=== PATIENT | male | born 1970 | race Caucasian/White ===

== ENCOUNTER 2019-07-23 15:13 | Inpatient (IN) | payer MEDICAID ==
[~2019-07-23] VITALS: Ht 188 cm; Wt 77.8 kg
[2019-07-23] MEDS ORDERED: SODIUM CHLORIDE 0.9% 1,000ML IVBOLUS ONE (15:30)
[2019-07-23] MEDS ORDERED: SODIUM CHLORIDE FLUSH 10ML SYR IVF ONE (15:30)
--- NOTE | 2019-07-23 15:32 | NUR ---
COLLEEN MEJÍA FROM [place] FOR PNA, PANCREATITIS, ETOH AND URINARY RETENTION. PT IS ALTERED STATES YEAR IS "1984". PRESENTS W/ SMIEON CATH W/ NO SECUREMENT DEVICE IN PLACE. PT STATES "PLACED YESTERDAY". PT PRESENTS ON 5L NC. EMS REPORTS WHEN THEY PICKED HIM UP INITIALLY TO BRING HIM TO [facility] HE WAS 51% AT HOME. PT IS TACHYCARDIC. PT HAS TREMORS. GIVEN ATIVAN, 2G ROCEPHIN AND FENTANYL SUPERVISOR TWISTING DEPARTMENT. PT IS CONNECTED TO ALL MONITORING. LAB AND RAD IN ROOM. EKG DONE. CALL LIGHT IN REACH. WILL CONTINUE TO MONITOR.
--- NOTE | 2019-07-23 15:49 | NUR ---
SEIZURE PRECAUTIONS IN PLACE.
[2019-07-23 15:51] LABS: MEAN CORPUSCULAR HEMOGLOBIN 32.2 pg (27.5-34.5); MEAN CORPUSCULAR HGB CONC 32.5 g/dL (33.2-36.2); MEAN PLATELET VOLUME 11.8 fL (7.4-10.4); PLATELET COUNT 124 x10^3/uL (130-400); RED BLOOD COUNT 3.13 x10^6/uL (4.38-5.82); RED CELL DISTRIBUTION WIDTH 15.2 % (9.4-14.8)
--- NOTE | 2019-07-23 15:56 | NUR ---
TELEPHONE CALL FROM [facility] IN US TO REORDER PARACENTESIS IN IR INSTEAD OF US. WILL NOTIFY .
[2019-07-23 16:02] LABS: ALANINE AMINOTRANSFERASE 43 U/L (12-78); ALBUMIN 1.9 g/dL (3.4-5.0); ANION GAP 12 mmol/L (5-15); CALCIUM 7.6 mg/dL (8.5-10.1); CHLORIDE 99 mmol/L (98-107); CREATININE 0.44 mg/dL (0.7-1.3); INTERNATIONAL NORMALIZED RATIO 1.32 (0.93-1.1)
[2019-07-23 16:06] LABS: ALKALINE PHOSPHATASE 340 U/L (45-117); BILIRUBIN,TOTAL 2.9 mg/dL (0.2-1.0); TOTAL PROTEIN 5.7 g/dL (6.4-8.2)
[2019-07-23 16:09] LABS: BASOPHILS # (AUTO) 0.14 x10^3/uL (0-0.1); BASOPHILS % (AUTO) 1 % (0-1); EOSINOPHILS # (AUTO) 0.01 x10^3/uL (0-0.4); EOSINOPHILS % (AUTO) 0 % (1-7); LYMPHOCYTES # (AUTO) 0.66 x10^3/uL (1-3.4); LYMPHOCYTES % (AUTO) 4 % (22-44); MD SCAN; MONOCYTES # (AUTO) 1.16 x10^3/uL (0.2-0.8); MONOCYTES % (AUTO) 6 % (2-9); NEUTROPHILS # (AUTO) 16.89 x10^3/uL (1.8-6.8); NEUTROPHILS % (AUTO) 90 % (42-75)
[2019-07-23 16:14] LABS: ACETONE, SERUM Large (80mg/dL) (Negative)
--- NOTE | 2019-07-23 16:31 | NUR ---
EMEKA BATISTA (GIRLFRIEND) [phone]. PT GAVE VERBAL PERMISSION TO UPDATE HER. STATES SHE WILL BE HERE TOMORROW MORNING.
[2019-07-23] MEDS ORDERED: LORazepam 2 MG/ML, 1ML ONE ×3 (17:03→19:28)
[2019-07-23] MEDS: LORazepam 2 MG/ML, 1ML IVPush PRN ×3 (17:07→19:30)
[2019-07-23] MEDS ORDERED: LIDOCAINE 1%, 10ML ONE (17:15)
--- NOTE | 2019-07-23 17:17 | NUR ---
PT MEDICATED PER EMAR. TACHYCARDIC. ALL OTHER VS WDL. RESTING ON GURNEY, RESTLESS. REPORTS "SEEING SHADOWS" AND WAS HAVING AUDITORY HALLUCINATIONS HOWEVER THEY HAVE STOPPED. WILL CONTINUE TO MONITOR. CALL LIGHT IN REACH. AWAITING PARACENTESIS.
[2019-07-23] MEDS ORDERED: ALEN70TA3 PO (17:23)
[2019-07-23] MEDS ORDERED: IBUP-1222 PO (17:23)
[2019-07-23] MEDS ORDERED: LISI-167 PO (17:23)
[2019-07-23] MEDS ORDERED: GABA-826 PO (17:23)
[2019-07-23] MEDS ORDERED: NORT25CA78 PO (17:28)
[2019-07-23] MEDS ORDERED: TRAZ150T62 PO (17:28)
[2019-07-23] MEDS ORDERED: SERT100T PO (17:28)
[2019-07-23] MEDS ORDERED: AMLO10TA8 PO (17:28)
[2019-07-23] MEDS ORDERED: PROC5TAB2 PO (17:29)
[2019-07-23] MEDS ORDERED: VITAMIN D PO (17:32)
[2019-07-23] MEDS ORDERED: ALBU8.5H8 INH (17:34)
--- NOTE | 2019-07-23 17:35 | NUR ---
PT TO IR VIA [facility]
--- NOTE | 2019-07-23 17:44 | NUR ---
PT BACK FROM IR. REPORTS DRAINING 400CC OFF.
--- NOTE | 2019-07-23 17:53 | NUR ---
URINE COLLECTED AMD SENT TO LAB. SHEET AND SAGAR CHANGED. PT REPOSITIONED IN BED.
--- NOTE | 2019-07-23 18:26 | NUR ---
PT MEDICATED PER DOMINGO. SIMIN GEE IN ROOM FOR US IV.
[2019-07-23 18:53] LABS: MICROSCOPIC INDICATED
--- NOTE | 2019-07-23 18:56 | NUR ---
Assumed care of pt at this time. Pt awake on gurney. Tremors noted. Pt remains on full monitors. Pt responded "hi" when RN intitated conversation but then told RN that "a ride is coming for him". Pt redirected that pt will be staying over night in the hosptial. First NS Liter running.
[2019-07-23 18:57] LABS: CULTURE INDICATED? YES
[2019-07-23] MEDS ORDERED: SODIUM CHLORIDE FLUSH 10ML SYR IVF PRN (19:00)
--- NOTE | 2019-07-23 19:10 | NUR ---
Admitting MD at bedside.
[2019-07-23] MEDS: SODIUM CHLORIDE 0.9% 1,000 ML IV SCH (19:25)
[2019-07-23] MEDS ORDERED: THIAMINE 200 MG in DEXTROSE 5% 50 ML IVPB ONE (19:30)
[2019-07-23] MEDS ORDERED: LORazepam 0.5MG TABLET PO PRN (19:30)
[2019-07-23] MEDS ORDERED: LORazepam 1MG TABLET PO PRN ×4 (19:30)
[2019-07-23] MEDS ORDERED: FOLIC ACID 1 MG TABLET PO ONE (19:30)
[2019-07-23] MEDS ORDERED: PROMETHAZINE 25 MG/ML, 1ML IM PRN (19:30)
[2019-07-23] MEDS ORDERED: LORazepam 2 MG/ML, 1ML IV PRN ×5 (19:30)
--- NOTE | 2019-07-23 19:36 | NUR ---
Pt CIWA rescored. 1mg ativan given. VS retaken. Pt remains restless on gurney. Pt speaks back to RN but the conversation is disoriented.
--- NOTE | 2019-07-23 19:55 | NUR ---
NS fluids started. POC BS 73. Banana bag request sent to pharmacy.
[2019-07-23] MEDS ORDERED: MAGNESIUM SULFATE 1 GM, THIAMINE 100 MG, FOLIC ACID 1 MG, MVI ADULT 10 ML in SODIUM CHL... IV ONE (20:00)
--- NOTE | 2019-07-23 20:02 | NUR ---
Pt repositioned and supported with pillow to prevent sliding to left side.
[2019-07-23] MEDS ORDERED: ENOXAPARIN 80 MG/0.8 ML ONE (20:04)
[2019-07-23] MEDS: ENOXAPARIN 40 MG/0.4 ML SQ SCH (20:08)
[2019-07-23 20:10] LABS: AMPHETAMINE SCREEN, URINE Negative (Negative); BARBITURATE SCREEN, URINE Negative (Negative); BENZODIAZEPINE SCREEN, URINE Negative (Negative); CANNABINOID SCREEN, URINE Positive (Negative); COCAINE SCREEN, URINE Negative (Negative); METHADONE SCREEN, URINE Negative (Negative); OPIATE SCREEN, URINE Negative (Negative)
--- NOTE | 2019-07-23 20:11 | NUR ---
Lovenox given. Pt sleeping off-on on gurney. Dry cough noted.
--- NOTE | 2019-07-23 20:40 | NUR ---
Bana bag started. Pt sleeping on gurney but refractory specialist tremors continue. VS retaken.
--- NOTE | 2019-07-23 21:23 | NUR ---
Pt remains sleeping on gurney. No tremors noted at this time. Pt remains on 5L NC. Banana bag and NS continue to infuse. Pt remains on full monitors.
--- NOTE | 2019-07-23 22:16 | NUR ---
Report given to MARLEN Do
--- NOTE | 2019-07-23 22:19 | NUR ---
Pt sleeping on gurney. VSS. Fluids continue to run. No tremors noted at this time.
[2019-07-23 23:08] VITALS: BP 150/98
[2019-07-23] MEDS ORDERED: FOLIC ACID 1 MG TABLET ONE (23:40)
[2019-07-23] MEDS: DIAZEPAM 10 MG TABLET PO SCH (23:44)
[2019-07-23] MEDS: DOXYCYCLINE 100 MG in DEXTROSE 5% 250 ML IV SCH (23:44)
[2019-07-24 00:05] VITALS: BP 151/88
[2019-07-24] MEDS: DOXYCYCLINE 100 MG in DEXTROSE 5% 250 ML IV SCH ×2 (01:03→12:52)
[2019-07-24] MEDS: DIAZEPAM 10 MG TABLET PO SCH ×4 (05:16→23:33)
[2019-07-24 06:17] LABS: BASOPHILS # (AUTO) 0.07 x10^3/uL (0-0.1); BASOPHILS % (AUTO) 1 % (0-1); EOSINOPHILS % (AUTO) 2 % (1-7); LYMPHOCYTES # (AUTO) 1.06 x10^3/uL (1-3.4); LYMPHOCYTES % (AUTO) 7 % (22-44); MD NO; MEAN CORPUSCULAR HEMOGLOBIN 32.6 pg (27.5-34.5); MEAN CORPUSCULAR HGB CONC 32.4 g/dL (33.2-36.2); MEAN CORPUSCULAR VOLUME 100.6 fL (81-97); MEAN PLATELET VOLUME 11.8 fL (7.4-10.4); MONOCYTES # (AUTO) 1.15 x10^3/uL (0.2-0.8); MONOCYTES % (AUTO) 8 % (2-9); NEUTROPHILS # (AUTO) 12.27 x10^3/uL (1.8-6.8); NEUTROPHILS % (AUTO) 83 % (42-75); PLATELET COUNT 108 x10^3/uL (130-400); RED BLOOD COUNT 3.07 x10^6/uL (4.38-5.82); RED CELL DISTRIBUTION WIDTH 15.4 % (9.4-14.8)
[2019-07-24 06:28] LABS: CHLORIDE 101 mmol/L (98-107)
[2019-07-24 06:34] LABS: ALANINE AMINOTRANSFERASE 36 U/L (12-78); ALBUMIN 1.6 g/dL (3.4-5.0); ALKALINE PHOSPHATASE 292 U/L (45-117); ANION GAP 8 mmol/L (5-15); BILIRUBIN,TOTAL 2.6 mg/dL (0.2-1.0); CREATININE 0.34 mg/dL (0.7-1.3); TOTAL PROTEIN 4.9 g/dL (6.4-8.2)
[2019-07-24] MEDS ORDERED: POTASSIUM CHLORIDE 20 MEQ in SODIUM CHLORIDE 0.9% 250 ML IV ONE (07:30)
[2019-07-24] MEDS: SODIUM CHLORIDE 0.9% 1,000 ML IV SCH ×2 (08:14→20:19)
[2019-07-24] MEDS: MULTIVITAMINS/MINERALS TABLET PO SCH (08:14)
[2019-07-24 08:33] VITALS: BP 144/99
[2019-07-24] MEDS: PANTOPRAZOLE 40 MG IV IVPush SCH ×2 (11:07→23:33)
[2019-07-24] MEDS: CEFTRIAXONE PMX 2GM/50ML 50 ML IV SCH (12:10)
[2019-07-24 14:25] VITALS: BP 116/79
[2019-07-24 19:06] VITALS: BP 121/84
[2019-07-24] MEDS: ENOXAPARIN 40 MG/0.4 ML SQ SCH (20:18)
[2019-07-25] MEDS: DOXYCYCLINE 100 MG in DEXTROSE 5% 250 ML IV SCH ×2 (01:20→12:31)
[2019-07-25 01:50] VITALS: BP 124/88
[2019-07-25 05:47] LABS: ALANINE AMINOTRANSFERASE 40 U/L (12-78); ALBUMIN 1.7 g/dL (3.4-5.0); ANION GAP 7 mmol/L (5-15); CALCIUM 7.3 mg/dL (8.5-10.1); CHLORIDE 104 mmol/L (98-107)
[2019-07-25 05:50] LABS: ALKALINE PHOSPHATASE 307 U/L (45-117); BILIRUBIN,TOTAL 2.7 mg/dL (0.2-1.0); CREATININE 0.35 mg/dL (0.7-1.3); TOTAL PROTEIN 5.2 g/dL (6.4-8.2)
[2019-07-25] MEDS: DIAZEPAM 10 MG TABLET PO SCH ×2 (05:52)
[2019-07-25 06:21] VITALS: BP 118/85
[2019-07-25 06:31] LABS: BASOPHILS # (AUTO) 0.05 x10^3/uL (0-0.1); BASOPHILS % (AUTO) 0 % (0-1); EOSINOPHILS # (AUTO) 0.23 x10^3/uL (0-0.4); EOSINOPHILS % (AUTO) 2 % (1-7); LYMPHOCYTES # (AUTO) 0.92 x10^3/uL (1-3.4); LYMPHOCYTES % (AUTO) 8 % (22-44); MD NO; MEAN CORPUSCULAR HGB CONC 31.4 g/dL (33.2-36.2); MEAN CORPUSCULAR VOLUME 101.8 fL (81-97); MEAN PLATELET VOLUME 11.3 fL (7.4-10.4); MONOCYTES # (AUTO) 1.26 x10^3/uL (0.2-0.8); MONOCYTES % (AUTO) 11 % (2-9); NEUTROPHILS # (AUTO) 9.21 x10^3/uL (1.8-6.8); NEUTROPHILS % (AUTO) 79 % (42-75); PLATELET COUNT 127 x10^3/uL (130-400); RED BLOOD COUNT 3.36 x10^6/uL (4.38-5.82); RED CELL DISTRIBUTION WIDTH 15.5 % (9.4-14.8)
[2019-07-25] MEDS: D5%-0.45NACL+KCL 20MEQ 1,000 ML IV SCH (08:44)
[2019-07-25] MEDS: POTASSIUM CHLORIDE 20 MEQ TAB.ER.PRT PO SCH ×2 (08:45→16:25)
[2019-07-25] MEDS: MULTIVITAMINS/MINERALS TABLET PO SCH (08:45)
[2019-07-25] MEDS: THIAMINE 100 MG in DEXTROSE 5% 50 ML IVPB SCH (08:45)
[2019-07-25] MEDS: DIAZEPAM 5 MG TABLET PO SCH ×3 (08:45→19:44)
[2019-07-25] MEDS: CEFTRIAXONE PMX 2GM/50ML 50 ML IV SCH (11:29)
[2019-07-25] MEDS: PANTOPRAZOLE 40 MG IV IVPush SCH ×2 (11:29→23:35)
[2019-07-25 12:06] VITALS: BP 112/80
[2019-07-25 19:14] VITALS: BP_SYST 112; BP_SYST 118; BP_DIAS 74; BP_DIAS 86
[2019-07-25] MEDS: ENOXAPARIN 40 MG/0.4 ML SQ SCH (19:44)
[2019-07-26 00:11] VITALS: BP 108/78
[2019-07-26] MEDS: DOXYCYCLINE 100 MG in DEXTROSE 5% 250 ML IV SCH ×2 (00:40→13:10)
[2019-07-26] MEDS: DIAZEPAM 5 MG TABLET PO SCH (01:58)
[2019-07-26] MEDS: D5%-0.45NACL+KCL 20MEQ 1,000 ML IV SCH ×2 (04:25→23:01)
[2019-07-26 06:11] LABS: BASOPHILS # (AUTO) 0.08 x10^3/uL (0-0.1); BASOPHILS % (AUTO) 1 % (0-1); EOSINOPHILS # (AUTO) 0.24 x10^3/uL (0-0.4); EOSINOPHILS % (AUTO) 2 % (1-7); LYMPHOCYTES # (AUTO) 1.19 x10^3/uL (1-3.4); LYMPHOCYTES % (AUTO) 12 % (22-44); MD NO; MEAN CORPUSCULAR HEMOGLOBIN 32.1 pg (27.5-34.5); MEAN CORPUSCULAR HGB CONC 31.6 g/dL (33.2-36.2); MEAN CORPUSCULAR VOLUME 101.6 fL (81-97); MONOCYTES # (AUTO) 0.99 x10^3/uL (0.2-0.8); MONOCYTES % (AUTO) 10 % (2-9); NEUTROPHILS # (AUTO) 7.66 x10^3/uL (1.8-6.8); NEUTROPHILS % (AUTO) 75 % (42-75); PLATELET COUNT 138 x10^3/uL (130-400); RED BLOOD COUNT 3.69 x10^6/uL (4.38-5.82); RED CELL DISTRIBUTION WIDTH 15.9 % (9.4-14.8)
[2019-07-26 06:21] LABS: ALANINE AMINOTRANSFERASE 40 U/L (12-78); ALBUMIN 1.8 g/dL (3.4-5.0); ANION GAP 5 mmol/L (5-15); CALCIUM 7.5 mg/dL (8.5-10.1); CHLORIDE 108 mmol/L (98-107); CREATININE 0.45 mg/dL (0.7-1.3)
[2019-07-26 06:23] LABS: ALKALINE PHOSPHATASE 309 U/L (45-117); BILIRUBIN,TOTAL 2.1 mg/dL (0.2-1.0); TOTAL PROTEIN 5.6 g/dL (6.4-8.2)
[2019-07-26 06:36] VITALS: BP 119/85
[2019-07-26] MEDS: PANTOPROZOLE 40MG TABLET PO SCH (08:32)
[2019-07-26] MEDS: MULTIVITAMINS/MINERALS TABLET PO SCH (08:32)
[2019-07-26] MEDS: THIAMINE 100 MG in DEXTROSE 5% 50 ML IVPB SCH (08:32)
[2019-07-26] MEDS ORDERED: DIAZEPAM 5 MG TABLET PO SCH (09:00)
[2019-07-26] MEDS: CEFTRIAXONE PMX 2GM/50ML 50 ML IV SCH (12:03)
[2019-07-26 12:08] VITALS: BP 122/90
[2019-07-26] MEDS: ENOXAPARIN 40 MG/0.4 ML SQ SCH (20:11)
[2019-07-26 20:15] VITALS: BP 122/87
[2019-07-27 00:49] VITALS: BP 123/90
[2019-07-27] MEDS: DOXYCYCLINE 100 MG in DEXTROSE 5% 250 ML IV SCH ×2 (01:11→13:00)
[2019-07-27 06:48] VITALS: BP 132/97
[2019-07-27 06:50] LABS: BASOPHILS # (AUTO) 0.05 x10^3/uL (0-0.1); BASOPHILS % (AUTO) 0 % (0-1); EOSINOPHILS # (AUTO) 0.31 x10^3/uL (0-0.4); EOSINOPHILS % (AUTO) 3 % (1-7); LYMPHOCYTES # (AUTO) 1.27 x10^3/uL (1-3.4); LYMPHOCYTES % (AUTO) 10 % (22-44); MD NO; MEAN CORPUSCULAR HEMOGLOBIN 32.2 pg (27.5-34.5); MEAN CORPUSCULAR HGB CONC 32.1 g/dL (33.2-36.2); MEAN CORPUSCULAR VOLUME 100.3 fL (81-97); MEAN PLATELET VOLUME 10.3 fL (7.4-10.4); MONOCYTES # (AUTO) 1.32 x10^3/uL (0.2-0.8); MONOCYTES % (AUTO) 11 % (2-9); NEUTROPHILS # (AUTO) 9.36 x10^3/uL (1.8-6.8); NEUTROPHILS % (AUTO) 76 % (42-75); PLATELET COUNT 172 x10^3/uL (130-400); RED BLOOD COUNT 3.27 x10^6/uL (4.38-5.82); RED CELL DISTRIBUTION WIDTH 15.3 % (9.4-14.8)
[2019-07-27 07:01] LABS: ALBUMIN 1.7 g/dL (3.4-5.0); ANION GAP 4 mmol/L (5-15); CALCIUM 7.5 mg/dL (8.5-10.1); CHLORIDE 109 mmol/L (98-107)
[2019-07-27 07:07] LABS: ALANINE AMINOTRANSFERASE 36 U/L (12-78); ALKALINE PHOSPHATASE 271 U/L (45-117); BILIRUBIN,TOTAL 2.1 mg/dL (0.2-1.0); CREATININE 0.44 mg/dL (0.7-1.3); TOTAL PROTEIN 5.2 g/dL (6.4-8.2)
[2019-07-27] MEDS: MULTIVITAMINS/MINERALS TABLET PO SCH (08:43)
[2019-07-27] MEDS: PANTOPROZOLE 40MG TABLET PO SCH (08:43)
[2019-07-27] MEDS: THIAMINE 100 MG in DEXTROSE 5% 50 ML IVPB SCH (08:44)
[2019-07-27] MEDS: CEFTRIAXONE PMX 2GM/50ML 50 ML IV SCH (11:31)
[2019-07-27 12:16] VITALS: BP 110/82
[2019-07-27] MEDS: ACETAMINOPHEN 500 MG TABLET PO PRN (12:27)
[2019-07-27] MEDS: ENOXAPARIN 40 MG/0.4 ML SQ SCH (19:53)
[2019-07-27 20:08] VITALS: BP 126/88
[2019-07-28 00:54] VITALS: BP 136/95
[2019-07-28] MEDS: ACETAMINOPHEN 500 MG TABLET PO PRN ×2 (01:05→20:08)
[2019-07-28] MEDS: DOXYCYCLINE 100 MG in DEXTROSE 5% 250 ML IV SCH ×2 (01:05→13:15)
[2019-07-28] MEDS: PANTOPROZOLE 40MG TABLET PO SCH (05:48)
[2019-07-28 06:27] LABS: ALBUMIN 1.7 g/dL (3.4-5.0); ANION GAP 6 mmol/L (5-15); CALCIUM 7.7 mg/dL (8.5-10.1); CHLORIDE 109 mmol/L (98-107)
[2019-07-28 06:32] LABS: ALANINE AMINOTRANSFERASE 36 U/L (12-78); ALKALINE PHOSPHATASE 249 U/L (45-117); BILIRUBIN,TOTAL 1.7 mg/dL (0.2-1.0); CREATININE 0.46 mg/dL (0.7-1.3); MEAN CORPUSCULAR HEMOGLOBIN 31.8 pg (27.5-34.5); MEAN CORPUSCULAR HGB CONC 31.6 g/dL (33.2-36.2); MEAN CORPUSCULAR VOLUME 100.7 fL (81-97); MEAN PLATELET VOLUME 10.5 fL (7.4-10.4); PLATELET COUNT 203 x10^3/uL (130-400); RED BLOOD COUNT 3.33 x10^6/uL (4.38-5.82); RED CELL DISTRIBUTION WIDTH 15.6 % (9.4-14.8); TOTAL PROTEIN 5.3 g/dL (6.4-8.2)
[2019-07-28 07:16] LABS: BASOPHILS # (AUTO) 0.03 x10^3/uL (0-0.1); BASOPHILS % (AUTO) 0 % (0-1); EOSINOPHILS # (AUTO) 0.22 x10^3/uL (0-0.4); EOSINOPHILS % (AUTO) 2 % (1-7); LYMPHOCYTES # (AUTO) 0.95 x10^3/uL (1-3.4); LYMPHOCYTES % (AUTO) 7 % (22-44); MD SCAN; MONOCYTES # (AUTO) 1.48 x10^3/uL (0.2-0.8); MONOCYTES % (AUTO) 10 % (2-9); NEUTROPHILS # (AUTO) 12.07 x10^3/uL (1.8-6.8); NEUTROPHILS % (AUTO) 82 % (42-75)
[2019-07-28 07:56] VITALS: BP 135/94
[2019-07-28] MEDS: THIAMINE 100 MG in DEXTROSE 5% 50 ML IVPB SCH (08:16)
[2019-07-28] MEDS: MULTIVITAMINS/MINERALS TABLET PO SCH (08:16)
[2019-07-28] MEDS: CEFTRIAXONE PMX 2GM/50ML 50 ML IV SCH (11:43)
[2019-07-28 12:43] VITALS: BP 124/78
[2019-07-28 19:54] VITALS: BP 119/87
[2019-07-28] MEDS: ENOXAPARIN 40 MG/0.4 ML SQ SCH (20:08)
[2019-07-28] MEDS: DOXYCYCLINE 100MG TABLET PO SCH (20:08)
[2019-07-29 01:16] VITALS: BP 122/75
[2019-07-29] MEDS: PANTOPROZOLE 40MG TABLET PO SCH (06:00)
[2019-07-29 06:40] VITALS: BP 121/95
[2019-07-29 06:53] LABS: MEAN CORPUSCULAR HEMOGLOBIN 31.8 pg (27.5-34.5); MEAN CORPUSCULAR HGB CONC 31.7 g/dL (33.2-36.2); MEAN CORPUSCULAR VOLUME 100.4 fL (81-97); RED BLOOD COUNT 3.83 x10^6/uL (4.38-5.82); RED CELL DISTRIBUTION WIDTH 15.7 % (9.4-14.8)
[2019-07-29 07:03] LABS: ALBUMIN 1.9 g/dL (3.4-5.0); ANION GAP 4 mmol/L (5-15); CHLORIDE 107 mmol/L (98-107)
[2019-07-29 07:07] LABS: ALANINE AMINOTRANSFERASE 40 U/L (12-78); ALKALINE PHOSPHATASE 265 U/L (45-117); BILIRUBIN,TOTAL 1.7 mg/dL (0.2-1.0); CREATININE 0.48 mg/dL (0.7-1.3); TOTAL PROTEIN 6.1 g/dL (6.4-8.2)
[2019-07-29 07:27] LABS: BASOPHILS % (AUTO) 1 % (0-1); EOSINOPHILS # (AUTO) 0.34 x10^3/uL (0-0.4); EOSINOPHILS % (AUTO) 2 % (1-7); LYMPHOCYTES # (AUTO) 1.34 x10^3/uL (1-3.4); LYMPHOCYTES % (AUTO) 9 % (22-44); MD SCAN; MEAN PLATELET VOLUME 10.6 fL (7.4-10.4); MONOCYTES # (AUTO) 1.74 x10^3/uL (0.2-0.8); MONOCYTES % (AUTO) 12 % (2-9); NEUTROPHILS # (AUTO) 10.68 x10^3/uL (1.8-6.8); NEUTROPHILS % (AUTO) 75 % (42-75); PLATELET COUNT 221 x10^3/uL (130-400)
[2019-07-29] MEDS: MULTIVITAMINS/MINERALS TABLET PO SCH (08:47)
[2019-07-29] MEDS: THIAMINE 100MG TABLET PO SCH (08:47)
[2019-07-29] MEDS: DOXYCYCLINE 100MG TABLET PO SCH ×2 (08:48→19:59)
[2019-07-29] MEDS: CEFTRIAXONE PMX 2GM/50ML 50 ML IV SCH (11:56)
[2019-07-29 12:19] VITALS: BP 116/80
[2019-07-29 19:04] VITALS: BP 130/90
[2019-07-29] MEDS: ENOXAPARIN 40 MG/0.4 ML SQ SCH (19:59)
[2019-07-30 01:27] VITALS: BP 134/94
[2019-07-30] MEDS: PANTOPROZOLE 40MG TABLET PO SCH (05:08)
[2019-07-30 05:37] LABS: ALBUMIN 1.7 g/dL (3.4-5.0); ANION GAP 5 mmol/L (5-15); CALCIUM 7.8 mg/dL (8.5-10.1); CHLORIDE 107 mmol/L (98-107)
[2019-07-30 05:41] LABS: ALANINE AMINOTRANSFERASE 37 U/L (12-78); ALKALINE PHOSPHATASE 242 U/L (45-117); BILIRUBIN,TOTAL 1.4 mg/dL (0.2-1.0); CREATININE 0.48 mg/dL (0.7-1.3); TOTAL PROTEIN 5.7 g/dL (6.4-8.2)
[2019-07-30 05:49] LABS: MEAN CORPUSCULAR HEMOGLOBIN 31.7 pg (27.5-34.5); MEAN CORPUSCULAR HGB CONC 31.5 g/dL (33.2-36.2); MEAN CORPUSCULAR VOLUME 100.5 fL (81-97); MEAN PLATELET VOLUME 10.9 fL (7.4-10.4); PLATELET COUNT 264 x10^3/uL (130-400); RED BLOOD COUNT 3.47 x10^6/uL (4.38-5.82); RED CELL DISTRIBUTION WIDTH 15.4 % (9.4-14.8)
[2019-07-30 06:18] LABS: BASOPHILS # (AUTO) 0.09 x10^3/uL (0-0.1); BASOPHILS % (AUTO) 1 % (0-1); EOSINOPHILS # (AUTO) 0.19 x10^3/uL (0-0.4); EOSINOPHILS % (AUTO) 1 % (1-7); LYMPHOCYTES # (AUTO) 0.89 x10^3/uL (1-3.4); LYMPHOCYTES % (AUTO) 5 % (22-44); MD SCAN; MONOCYTES # (AUTO) 2.39 x10^3/uL (0.2-0.8); MONOCYTES % (AUTO) 14 % (2-9); NEUTROPHILS # (AUTO) 12.97 x10^3/uL (1.8-6.8); NEUTROPHILS % (AUTO) 78 % (42-75)
[2019-07-30 07:30] VITALS: BP 118/82
[2019-07-30] MEDS: THIAMINE 100MG TABLET PO SCH (07:45)
[2019-07-30] MEDS: DOXYCYCLINE 100MG TABLET PO SCH ×2 (07:45→20:17)
[2019-07-30] MEDS: MULTIVITAMINS/MINERALS TABLET PO SCH (07:45)
[2019-07-30] MEDS ORDERED: FUROSEMIDE 40 MG/4 ML IV ONE (10:00)
[2019-07-30] MEDS: CEFTRIAXONE PMX 2GM/50ML 50 ML IV SCH (11:41)
[2019-07-30 13:17] VITALS: BP 129/91
[2019-07-30 18:42] VITALS: BP 139/97
[2019-07-30] MEDS: ENOXAPARIN 40 MG/0.4 ML SQ SCH (20:17)
[2019-07-31 01:21] VITALS: BP 129/84
[2019-07-31] MEDS: PANTOPROZOLE 40MG TABLET PO SCH (05:04)
[2019-07-31 05:36] LABS: MEAN CORPUSCULAR HEMOGLOBIN 31.5 pg (27.5-34.5); MEAN CORPUSCULAR HGB CONC 31.8 g/dL (33.2-36.2); MEAN CORPUSCULAR VOLUME 98.8 fL (81-97); MEAN PLATELET VOLUME 10.8 fL (7.4-10.4); PLATELET COUNT 272 x10^3/uL (130-400); RED BLOOD COUNT 3.39 x10^6/uL (4.38-5.82); RED CELL DISTRIBUTION WIDTH 15.5 % (9.4-14.8)
[2019-07-31 05:47] LABS: ALANINE AMINOTRANSFERASE 40 U/L (12-78); ALBUMIN 1.7 g/dL (3.4-5.0); ANION GAP 6 mmol/L (5-15); CALCIUM 7.8 mg/dL (8.5-10.1); CHLORIDE 106 mmol/L (98-107); CREATININE 0.42 mg/dL (0.7-1.3)
[2019-07-31 05:49] LABS: ALKALINE PHOSPHATASE 218 U/L (45-117); BILIRUBIN,TOTAL 1.1 mg/dL (0.2-1.0); TOTAL PROTEIN 5.6 g/dL (6.4-8.2)
[2019-07-31 06:06] LABS: BASOPHILS # (AUTO) 0.03 x10^3/uL (0-0.1); BASOPHILS % (AUTO) 0 % (0-1); EOSINOPHILS # (AUTO) 0.24 x10^3/uL (0-0.4); EOSINOPHILS % (AUTO) 1 % (1-7); LYMPHOCYTES # (AUTO) 1.58 x10^3/uL (1-3.4); LYMPHOCYTES % (AUTO) 9 % (22-44); MONOCYTES # (AUTO) 1.51 x10^3/uL (0.2-0.8); MONOCYTES % (AUTO) 8 % (2-9); NEUTROPHILS # (AUTO) 14.86 x10^3/uL (1.8-6.8); NEUTROPHILS % (AUTO) 82 % (42-75)
[2019-07-31 06:08] LABS: MD SCAN
[2019-07-31 07:20] VITALS: BP 121/85
[2019-07-31] MEDS ORDERED: AMLODIPINE 10 MG TAB ONE (08:48)
[2019-07-31] MEDS ORDERED: LISINOPRIL 20 MG TABLET ONE (08:48)
[2019-07-31] MEDS ORDERED: GABAPENTIN 100 MG CAPSULE ONE (08:48)
[2019-07-31] MEDS ORDERED: FUROSEMIDE 40 MG/4 ML IV SCH (09:00)
[2019-07-31] MEDS: THIAMINE 100MG TABLET PO SCH (09:00)
[2019-07-31] MEDS: MULTIVITAMINS/MINERALS TABLET PO SCH (09:01)
[2019-07-31] MEDS: SPIRONOLACTONE 25 MG TABLET PO SCH (09:01)
[2019-07-31] MEDS: GABAPENTIN 100 MG CAPSULE PO SCH ×3 (09:01→21:54)
[2019-07-31] MEDS: LISINOPRIL 20 MG TABLET PO SCH (09:01)
[2019-07-31] MEDS: FUROSEMIDE 40 MG/4 ML IV SCH (09:01)
[2019-07-31] MEDS: AMLODIPINE 10 MG TAB PO SCH (09:03)
[2019-07-31] MEDS ORDERED: LIDOCAINE 1%, 10ML ONE (10:55)
[2019-07-31 12:53] LABS: CELLS COUNTED 20
[2019-07-31 13:29] VITALS: BP 105/71
[2019-07-31 19:20] VITALS: BP 114/75
[2019-07-31] MEDS: ENOXAPARIN 40 MG/0.4 ML SQ SCH (21:54)
[2019-08-01 01:45] VITALS: BP 101/68
[2019-08-01] MEDS: PANTOPROZOLE 40MG TABLET PO SCH (05:24)
[2019-08-01 06:36] VITALS: BP 121/77
[2019-08-01 06:39] LABS: ALBUMIN 1.6 g/dL (3.4-5.0); ANION GAP 4 mmol/L (5-15); CALCIUM 7.7 mg/dL (8.5-10.1); CHLORIDE 106 mmol/L (98-107)
[2019-08-01 06:44] LABS: ALANINE AMINOTRANSFERASE 38 U/L (12-78); ALKALINE PHOSPHATASE 202 U/L (45-117); BILIRUBIN,TOTAL 1.5 mg/dL (0.2-1.0); CREATININE 0.44 mg/dL (0.7-1.3); TOTAL PROTEIN 5.1 g/dL (6.4-8.2)
[2019-08-01 06:52] LABS: MEAN CORPUSCULAR HEMOGLOBIN 31.3 pg (27.5-34.5); MEAN CORPUSCULAR HGB CONC 31.5 g/dL (33.2-36.2); MEAN CORPUSCULAR VOLUME 99.3 fL (81-97); MEAN PLATELET VOLUME 11.4 fL (7.4-10.4); PLATELET COUNT 275 x10^3/uL (130-400); RED BLOOD COUNT 3.28 x10^6/uL (4.38-5.82); RED CELL DISTRIBUTION WIDTH 15.4 % (9.4-14.8)
[2019-08-01 07:36] LABS: BASOPHILS # (AUTO) 0.09 x10^3/uL (0-0.1); BASOPHILS % (AUTO) 1 % (0-1); EOSINOPHILS # (AUTO) 0.35 x10^3/uL (0-0.4); EOSINOPHILS % (AUTO) 2 % (1-7); LYMPHOCYTES # (AUTO) 1.59 x10^3/uL (1-3.4); LYMPHOCYTES % (AUTO) 8 % (22-44); MD SCAN; MONOCYTES # (AUTO) 1.58 x10^3/uL (0.2-0.8); MONOCYTES % (AUTO) 8 % (2-9); NEUTROPHILS # (AUTO) 15.39 x10^3/uL (1.8-6.8); NEUTROPHILS % (AUTO) 81 % (42-75)
[2019-08-01] MEDS: SPIRONOLACTONE 25 MG TABLET PO SCH (09:00)
[2019-08-01 09:39] LABS: HCT (SEDRATE) 32.6 % (39.2-51.8)
[2019-08-01] MEDS: LISINOPRIL 20 MG TABLET PO SCH (10:43)
[2019-08-01] MEDS: MULTIVITAMINS/MINERALS TABLET PO SCH (10:43)
[2019-08-01] MEDS: FUROSEMIDE 40 MG/4 ML IV SCH (10:43)
[2019-08-01] MEDS: THIAMINE 100MG TABLET PO SCH (10:43)
[2019-08-01] MEDS: GABAPENTIN 100 MG CAPSULE PO SCH ×3 (10:43→19:38)
[2019-08-01] MEDS: AMLODIPINE 10 MG TAB PO SCH (10:43)
[2019-08-01 12:25] VITALS: BP 87/57
[2019-08-01] MEDS ORDERED: SODIUM CHLORIDE 0.9%, 500ML IVBOLUS ONE (13:00)
[2019-08-01 15:06] VITALS: BP 96/63
[2019-08-01] MEDS: ENOXAPARIN 40 MG/0.4 ML SQ SCH (19:37)
[2019-08-01 20:03] VITALS: BP 95/65
[2019-08-02 00:31] VITALS: BP 102/69
[2019-08-02 05:01] LABS: MEAN CORPUSCULAR HEMOGLOBIN 31.3 pg (27.5-34.5); MEAN CORPUSCULAR HGB CONC 31.7 g/dL (33.2-36.2); MEAN CORPUSCULAR VOLUME 98.6 fL (81-97); MEAN PLATELET VOLUME 10.8 fL (7.4-10.4); PLATELET COUNT 334 x10^3/uL (130-400); RED BLOOD COUNT 3.27 x10^6/uL (4.38-5.82)
[2019-08-02 05:12] LABS: ANION GAP 6 mmol/L (5-15); CALCIUM 7.9 mg/dL (8.5-10.1); CHLORIDE 104 mmol/L (98-107); CREATININE 0.55 mg/dL (0.7-1.3)
[2019-08-02] MEDS: ACETAMINOPHEN 500 MG TABLET PO PRN ×2 (05:37→21:33)
[2019-08-02] MEDS: PANTOPROZOLE 40MG TABLET PO SCH (05:37)
[2019-08-02 05:42] LABS: BASOPHILS # (AUTO) 0.16 x10^3/uL (0-0.1); BASOPHILS % (AUTO) 1 % (0-1); EOSINOPHILS # (AUTO) 0.44 x10^3/uL (0-0.4); EOSINOPHILS % (AUTO) 2 % (1-7); LYMPHOCYTES # (AUTO) 1.69 x10^3/uL (1-3.4); LYMPHOCYTES % (AUTO) 9 % (22-44); MD SCAN; MONOCYTES # (AUTO) 1.43 x10^3/uL (0.2-0.8); MONOCYTES % (AUTO) 7 % (2-9); NEUTROPHILS # (AUTO) 15.48 x10^3/uL (1.8-6.8); NEUTROPHILS % (AUTO) 81 % (42-75)
[2019-08-02 06:55] VITALS: BP 102/65
[2019-08-02] MEDS: THIAMINE 100MG TABLET PO SCH (09:00)
[2019-08-02] MEDS: AMLODIPINE 10 MG TAB PO SCH (09:47)
[2019-08-02] MEDS: LISINOPRIL 20 MG TABLET PO SCH (09:47)
[2019-08-02] MEDS: SPIRONOLACTONE 25 MG TABLET PO SCH (09:47)
[2019-08-02] MEDS: MULTIVITAMINS/MINERALS TABLET PO SCH (09:47)
[2019-08-02] MEDS: GABAPENTIN 100 MG CAPSULE PO SCH ×3 (09:47→21:33)
[2019-08-02 13:05] VITALS: BP 93/59
[2019-08-02 13:06] VITALS: BP 136/73
[2019-08-02] MEDS: PIPERACILLIN/TAZO/PMX 3.375GM 50 ML IV SCH ×2 (16:59→21:33)
[2019-08-02 20:25] VITALS: BP 98/61
[2019-08-02] MEDS: ENOXAPARIN 40 MG/0.4 ML SQ SCH (21:33)
[2019-08-03 01:04] VITALS: BP 108/79
[2019-08-03] MEDS: ACETAMINOPHEN 500 MG TABLET PO PRN ×2 (03:36→13:34)
[2019-08-03] MEDS: PIPERACILLIN/TAZO/PMX 3.375GM 50 ML IV SCH ×4 (03:36→21:53)
[2019-08-03] MEDS: PANTOPROZOLE 40MG TABLET PO SCH (05:49)
[2019-08-03 08:46] VITALS: BP 95/65
[2019-08-03] MEDS: THIAMINE 100MG TABLET PO SCH (09:00)
[2019-08-03] MEDS: MULTIVITAMINS/MINERALS TABLET PO SCH (10:18)
[2019-08-03] MEDS: LISINOPRIL 20 MG TABLET PO SCH (10:19)
[2019-08-03] MEDS: AMLODIPINE 10 MG TAB PO SCH (10:19)
[2019-08-03] MEDS: SPIRONOLACTONE 25 MG TABLET PO SCH (10:19)
[2019-08-03] MEDS: GABAPENTIN 100 MG CAPSULE PO SCH ×3 (10:19→21:53)
[2019-08-03 12:47] LABS: MEAN CORPUSCULAR HGB CONC 31.5 g/dL (33.2-36.2); MEAN CORPUSCULAR VOLUME 98.2 fL (81-97); RED BLOOD COUNT 3.47 x10^6/uL (4.38-5.82); RED CELL DISTRIBUTION WIDTH 15.4 % (9.4-14.8)
[2019-08-03 13:03] LABS: PLATELET COUNT 372 x10^3/uL (130-400)
[2019-08-03 13:05] LABS: ANISOCYTOSIS 1+; BASOPHILS # (AUTO) 0.02 x10^3/uL (0-0.1); BASOPHILS % (AUTO) 0 % (0-1); EOSINOPHILS # (AUTO) 0.52 x10^3/uL (0-0.4); EOSINOPHILS % (AUTO) 3 % (1-7); LYMPHOCYTES # (AUTO) 1.57 x10^3/uL (1-3.4); LYMPHOCYTES % (AUTO) 8 % (22-44); MD MORPH REVIEW ONLY; MONOCYTES # (AUTO) 1.23 x10^3/uL (0.2-0.8); MONOCYTES % (AUTO) 6 % (2-9); NEUTROPHILS # (AUTO) 16.37 x10^3/uL (1.8-6.8); NEUTROPHILS % (AUTO) 83 % (42-75)
[2019-08-03 13:06] LABS: <PLATELET ESTIMATE> ADEQUATE; LARGE PLATELETS 1+; POLYCHROMASIA 1+
[2019-08-03] MEDS ORDERED: LIDOCAINE 1%, 10ML ONE (17:29)
[2019-08-03 17:49] VITALS: BP 102/78
[2019-08-03 20:15] VITALS: BP 101/68
[2019-08-03] MEDS: ENOXAPARIN 40 MG/0.4 ML SQ SCH (21:54)
[2019-08-03 22:52] LABS: CULTURE INDICATED? YES; MICROSCOPIC INDICATED
[2019-08-04 01:37] VITALS: BP 98/63
[2019-08-04] MEDS: PIPERACILLIN/TAZO/PMX 3.375GM 50 ML IV SCH ×2 (03:11→09:11)
[2019-08-04] MEDS: PANTOPROZOLE 40MG TABLET PO SCH (05:57)
[2019-08-04 07:24] VITALS: BP 111/76
[2019-08-04] MEDS: GABAPENTIN 100 MG CAPSULE PO SCH ×3 (09:12→20:45)
[2019-08-04] MEDS: LISINOPRIL 20 MG TABLET PO SCH (09:12)
[2019-08-04] MEDS: THIAMINE 100MG TABLET PO SCH (09:12)
[2019-08-04] MEDS: AMLODIPINE 10 MG TAB PO SCH (09:12)
[2019-08-04] MEDS: MULTIVITAMINS/MINERALS TABLET PO SCH (09:13)
[2019-08-04] MEDS: SPIRONOLACTONE 25 MG TABLET PO SCH (09:13)
[2019-08-04 09:26] LABS: BASOPHILS # (AUTO) 0.16 x10^3/uL (0-0.1); BASOPHILS % (AUTO) 1 % (0-1); EOSINOPHILS # (AUTO) 0.53 x10^3/uL (0-0.4); EOSINOPHILS % (AUTO) 3 % (1-7); LYMPHOCYTES # (AUTO) 1.68 x10^3/uL (1-3.4); LYMPHOCYTES % (AUTO) 8 % (22-44); MD SCAN; MEAN CORPUSCULAR HEMOGLOBIN 31.4 pg (27.5-34.5); MEAN CORPUSCULAR VOLUME 98.2 fL (81-97); MEAN PLATELET VOLUME 10.9 fL (7.4-10.4); MONOCYTES # (AUTO) 1.43 x10^3/uL (0.2-0.8); MONOCYTES % (AUTO) 7 % (2-9); NEUTROPHILS # (AUTO) 16.28 x10^3/uL (1.8-6.8); NEUTROPHILS % (AUTO) 81 % (42-75); PLATELET COUNT 421 x10^3/uL (130-400); RED BLOOD COUNT 3.66 x10^6/uL (4.38-5.82); RED CELL DISTRIBUTION WIDTH 15.1 % (9.4-14.8)
[2019-08-04] MEDS: LEVOFLOXACIN 750 MG TABLET PO SCH (10:31)
[2019-08-04 16:00] VITALS: BP 105/65
[2019-08-04] MEDS: ACETAMINOPHEN 500 MG TABLET PO PRN (17:46)
[2019-08-04 19:52] VITALS: BP 108/71
[2019-08-04] MEDS: ENOXAPARIN 40 MG/0.4 ML SQ SCH (20:45)
[2019-08-05 00:31] VITALS: BP 100/67
[2019-08-05] MEDS: ACETAMINOPHEN 500 MG TABLET PO PRN ×2 (01:07→13:19)
[2019-08-05] MEDS: TRAZODONE 150MG TABLET PO PRN ×2 (01:07→21:54)
[2019-08-05] MEDS: PANTOPROZOLE 40MG TABLET PO SCH (06:17)
[2019-08-05 08:25] LABS: MEAN CORPUSCULAR HEMOGLOBIN 30.9 pg (27.5-34.5); MEAN CORPUSCULAR HGB CONC 31.5 g/dL (33.2-36.2); MEAN PLATELET VOLUME 10.3 fL (7.4-10.4); PLATELET COUNT 386 x10^3/uL (130-400); RED CELL DISTRIBUTION WIDTH 15.1 % (9.4-14.8)
[2019-08-05 08:32] VITALS: BP 95/61
[2019-08-05 09:15] LABS: BASOPHILS # (AUTO) 0.02 x10^3/uL (0-0.1); BASOPHILS % (AUTO) 0 % (0-1); EOSINOPHILS # (AUTO) 0.61 x10^3/uL (0-0.4); EOSINOPHILS % (AUTO) 4 % (1-7); LYMPHOCYTES # (AUTO) 1.51 x10^3/uL (1-3.4); LYMPHOCYTES % (AUTO) 9 % (22-44); MD SCAN; MONOCYTES # (AUTO) 0.86 x10^3/uL (0.2-0.8); MONOCYTES % (AUTO) 5 % (2-9); NEUTROPHILS # (AUTO) 14.61 x10^3/uL (1.8-6.8); NEUTROPHILS % (AUTO) 83 % (42-75)
[2019-08-05] MEDS: MULTIVITAMINS/MINERALS TABLET PO SCH (10:00)
[2019-08-05] MEDS: THIAMINE 100MG TABLET PO SCH (10:00)
[2019-08-05] MEDS: AMLODIPINE 10 MG TAB PO SCH (10:00)
[2019-08-05] MEDS: SPIRONOLACTONE 25 MG TABLET PO SCH (10:00)
[2019-08-05] MEDS: LEVOFLOXACIN 750 MG TABLET PO SCH (10:00)
[2019-08-05] MEDS: LISINOPRIL 20 MG TABLET PO SCH (10:00)
[2019-08-05] MEDS: GABAPENTIN 100 MG CAPSULE PO SCH ×3 (10:00→21:54)
[2019-08-05 14:13] VITALS: BP 101/67
[2019-08-05] MEDS ORDERED: LIDOCAINE 1%, 10ML ONE (16:22)
[2019-08-05 18:24] LABS: CELLS COUNTED 56
[2019-08-05 19:50] VITALS: BP 98/60
[2019-08-05] MEDS: ENOXAPARIN 40 MG/0.4 ML SQ SCH (21:53)
[2019-08-06 01:13] VITALS: BP 99/62
[2019-08-06] MEDS: PANTOPROZOLE 40MG TABLET PO SCH (05:55)
[2019-08-06 06:32] VITALS: BP 99/67
[2019-08-06 08:15] VITALS: BP 107/74
[2019-08-06] MEDS: ACETAMINOPHEN 500 MG TABLET PO PRN ×2 (08:32→20:59)
[2019-08-06] MEDS: MULTIVITAMINS/MINERALS TABLET PO SCH (08:33)
[2019-08-06] MEDS: THIAMINE 100MG TABLET PO SCH (08:33)
[2019-08-06] MEDS: AMLODIPINE 10 MG TAB PO SCH (08:34)
[2019-08-06] MEDS: GABAPENTIN 100 MG CAPSULE PO SCH ×3 (08:34→20:59)
[2019-08-06] MEDS: SPIRONOLACTONE 25 MG TABLET PO SCH (08:35)
[2019-08-06] MEDS: LISINOPRIL 20 MG TABLET PO SCH (08:36)
[2019-08-06 09:26] LABS: MEAN CORPUSCULAR HEMOGLOBIN 30.4 pg (27.5-34.5); MEAN CORPUSCULAR VOLUME 98.1 fL (81-97); MEAN PLATELET VOLUME 10.2 fL (7.4-10.4); PLATELET COUNT 444 x10^3/uL (130-400); RED BLOOD COUNT 3.38 x10^6/uL (4.38-5.82); RED CELL DISTRIBUTION WIDTH 15.1 % (9.4-14.8)
[2019-08-06 09:47] LABS: ANION GAP 7 mmol/L (5-15); CALCIUM 7.7 mg/dL (8.5-10.1); CHLORIDE 105 mmol/L (98-107)
[2019-08-06 09:50] LABS: CREATININE 0.54 mg/dL (0.7-1.3)
[2019-08-06] MEDS: POTASSIUM CHLORIDE 20 MEQ PACKET PO SCH (10:17)
[2019-08-06] MEDS: LEVOFLOXACIN 750 MG TABLET PO SCH (10:18)
[2019-08-06] MEDS: FUROSEMIDE 10 MG/ML ORAL SOL PO SCH (10:19)
[2019-08-06 10:41] LABS: MD YES
[2019-08-06 10:43] LABS: BAND#(MANUAL) 0.18 x10^3/uL; BANDS%(MANUAL) 1 % (0-7); BASOS#(MANUAL) 0.18 x10^3/uL (0-0.1); BASOS% (MANUAL) 1 % (0-1); LYMPH#(MANUAL) 1.82 x10^3/uL (1-3.4); LYMPHS% (MANUAL) 10 % (22-44); MONOS#(MANUAL) 0.91 x10^3/uL (0.3-2.7); MONOS% (MANUAL) 5 % (2-9); REACTIVE LYMPHS # (MANUAL) 0.18 x10^3/uL (0-0); REACTIVE LYMPHS % (MANUAL) 1 % (0-0); SEG#(MANUAL) 14.92 x10^3/uL (1.8-6.8); SEGS% (MANUAL) 82 % (42-75)
[2019-08-06 10:44] LABS: <PLATELET ESTIMATE> INCREASED; ANISOCYTOSIS 1+
[2019-08-06 10:45] LABS: <PLT MORPHOLOGY> NORMAL PLT MORPH; HYPOCHROMIA 1+
[2019-08-06 12:47] VITALS: BP 98/63
[2019-08-06] MEDS: FLUTICASONE NASAL SPRAY 16GM NAS SCH ×2 (13:10→20:59)
[2019-08-06] MEDS ORDERED: OMNIPAQUE 350 MG/ML, 100ML BOTTLE ONE (15:30)
[2019-08-06 20:13] VITALS: BP 102/68
[2019-08-06] MEDS: ENOXAPARIN 40 MG/0.4 ML SQ SCH (20:59)
[2019-08-07] MEDS: TRAZODONE 150MG TABLET PO PRN ×2 (00:21→23:26)
[2019-08-07 00:25] VITALS: BP 93/64
[2019-08-07 04:41] LABS: MEAN CORPUSCULAR HEMOGLOBIN 30.6 pg (27.5-34.5); MEAN CORPUSCULAR HGB CONC 31.7 g/dL (33.2-36.2); MEAN CORPUSCULAR VOLUME 96.5 fL (81-97); MEAN PLATELET VOLUME 10.7 fL (7.4-10.4); PLATELET COUNT 449 x10^3/uL (130-400); RED BLOOD COUNT 3.43 x10^6/uL (4.38-5.82); RED CELL DISTRIBUTION WIDTH 14.9 % (9.4-14.8)
[2019-08-07 04:47] LABS: ANION GAP 2 mmol/L (5-15); CALCIUM 7.8 mg/dL (8.5-10.1); CHLORIDE 106 mmol/L (98-107); CREATININE 0.53 mg/dL (0.7-1.3)
[2019-08-07] MEDS: PANTOPROZOLE 40MG TABLET PO SCH (05:06)
[2019-08-07 05:45] LABS: BASOPHILS % (AUTO) 1 % (0-1); EOSINOPHILS # (AUTO) 0.81 x10^3/uL (0-0.4); EOSINOPHILS % (AUTO) 4 % (1-7); LYMPHOCYTES # (AUTO) 1.24 x10^3/uL (1-3.4); LYMPHOCYTES % (AUTO) 6 % (22-44); MD SCAN; MONOCYTES # (AUTO) 1.46 x10^3/uL (0.2-0.8); MONOCYTES % (AUTO) 8 % (2-9); NEUTROPHILS # (AUTO) 15.74 x10^3/uL (1.8-6.8); NEUTROPHILS % (AUTO) 81 % (42-75)
[2019-08-07 07:00] VITALS: BP 109/75
[2019-08-07] MEDS: LEVOFLOXACIN 750 MG TABLET PO SCH (08:54)
[2019-08-07] MEDS: MULTIVITAMINS/MINERALS TABLET PO SCH (08:54)
[2019-08-07] MEDS: SPIRONOLACTONE 25 MG TABLET PO SCH (08:54)
[2019-08-07] MEDS: LISINOPRIL 20 MG TABLET PO SCH (08:54)
[2019-08-07] MEDS: AMLODIPINE 10 MG TAB PO SCH (08:54)
[2019-08-07] MEDS: GABAPENTIN 100 MG CAPSULE PO SCH ×3 (08:54→21:18)
[2019-08-07] MEDS: THIAMINE 100MG TABLET PO SCH (08:54)
[2019-08-07] MEDS: POTASSIUM CHLORIDE 20 MEQ PACKET PO SCH (08:55)
[2019-08-07] MEDS: FLUTICASONE NASAL SPRAY 16GM NAS SCH ×2 (08:58→21:19)
[2019-08-07] MEDS: FUROSEMIDE 10 MG/ML ORAL SOL PO SCH (08:58)
[2019-08-07 12:33] LABS: HCT (SEDRATE) 32.7 % (39.2-51.8)
[2019-08-07] MEDS: ACETAMINOPHEN 500 MG TABLET PO PRN ×2 (12:52→21:18)
[2019-08-07 13:46] VITALS: BP_SYST 92; BP_SYST 98; BP_DIAS 59; BP_DIAS 65
[2019-08-07 19:52] VITALS: BP 96/61
[2019-08-07] MEDS: ENOXAPARIN 40 MG/0.4 ML SQ SCH (21:18)
[2019-08-08 01:45] VITALS: BP 94/56
[2019-08-08] MEDS: ACETAMINOPHEN 500 MG TABLET PO PRN ×2 (05:57→16:44)
[2019-08-08] MEDS: PANTOPROZOLE 40MG TABLET PO SCH (05:57)
[2019-08-08 06:23] LABS: MEAN CORPUSCULAR HEMOGLOBIN 30.7 pg (27.5-34.5); MEAN CORPUSCULAR VOLUME 95.8 fL (81-97); MEAN PLATELET VOLUME 10.7 fL (7.4-10.4); PLATELET COUNT 441 x10^3/uL (130-400); RED CELL DISTRIBUTION WIDTH 15.2 % (9.4-14.8)
[2019-08-08 06:26] LABS: ANION GAP 3 mmol/L (5-15); CALCIUM 8.1 mg/dL (8.5-10.1); CHLORIDE 105 mmol/L (98-107)
[2019-08-08 06:33] LABS: CREATININE 0.55 mg/dL (0.7-1.3)
[2019-08-08 06:37] VITALS: BP 98/67
[2019-08-08 06:51] LABS: BASOPHILS # (AUTO) 0.12 x10^3/uL (0-0.1); BASOPHILS % (AUTO) 1 % (0-1); EOSINOPHILS # (AUTO) 0.91 x10^3/uL (0-0.4); EOSINOPHILS % (AUTO) 5 % (1-7); LYMPHOCYTES # (AUTO) 1.53 x10^3/uL (1-3.4); LYMPHOCYTES % (AUTO) 8 % (22-44); MD SCAN; MONOCYTES # (AUTO) 1.53 x10^3/uL (0.2-0.8); MONOCYTES % (AUTO) 8 % (2-9); NEUTROPHILS % (AUTO) 79 % (42-75)
[2019-08-08] MEDS: FUROSEMIDE 10 MG/ML ORAL SOL PO SCH (09:00)
[2019-08-08] MEDS ORDERED: FUROSEMIDE 20 MG TABLET ONE (09:12)
[2019-08-08] MEDS: AMLODIPINE 10 MG TAB PO SCH (09:51)
[2019-08-08] MEDS: THIAMINE 100MG TABLET PO SCH (09:51)
[2019-08-08] MEDS: LISINOPRIL 20 MG TABLET PO SCH (09:51)
[2019-08-08] MEDS: SPIRONOLACTONE 25 MG TABLET PO SCH (09:52)
[2019-08-08] MEDS: MULTIVITAMINS/MINERALS TABLET PO SCH (09:52)
[2019-08-08] MEDS: LEVOFLOXACIN 750 MG TABLET PO SCH (09:52)
[2019-08-08] MEDS: GABAPENTIN 100 MG CAPSULE PO SCH ×3 (09:52→21:17)
[2019-08-08] MEDS: POTASSIUM CHLORIDE 20 MEQ PACKET PO SCH (09:53)
[2019-08-08] MEDS: FLUTICASONE NASAL SPRAY 16GM NAS SCH ×2 (09:53→21:17)
[2019-08-08 12:07] VITALS: BP 97/69
[2019-08-08] MEDS ORDERED: GADOTERATE 10 MMOL/20 ML SYR ONE (14:40)
[2019-08-08] MEDS: ENOXAPARIN 40 MG/0.4 ML SQ SCH (21:17)
[2019-08-08 21:20] VITALS: BP 103/66
[2019-08-08] MEDS: TRAZODONE 150MG TABLET PO PRN (21:26)
[2019-08-09 01:46] VITALS: BP 112/74
[2019-08-09] MEDS: PANTOPROZOLE 40MG TABLET PO SCH (05:36)
[2019-08-09] MEDS: ACETAMINOPHEN 500 MG TABLET PO PRN ×2 (05:40→16:34)
[2019-08-09 06:13] LABS: ALANINE AMINOTRANSFERASE 43 U/L (12-78); ALBUMIN 1.7 g/dL (3.4-5.0); ANION GAP 5 mmol/L (5-15); BILIRUBIN, DIRECT 0.6 mg/dL (0.1-0.2); CALCIUM 7.9 mg/dL (8.5-10.1); CHLORIDE 104 mmol/L (98-107); CREATININE 0.48 mg/dL (0.7-1.3)
[2019-08-09 06:15] LABS: ALKALINE PHOSPHATASE 140 U/L (45-117); BILIRUBIN,INDIRECT 0.1 mg/dL (0.0-2.0); BILIRUBIN,TOTAL 0.7 mg/dL (0.2-1.0); MEAN CORPUSCULAR HEMOGLOBIN 30.4 pg (27.5-34.5); MEAN CORPUSCULAR HGB CONC 31.6 g/dL (33.2-36.2); MEAN CORPUSCULAR VOLUME 96.2 fL (81-97); MEAN PLATELET VOLUME 10.5 fL (7.4-10.4); PLATELET COUNT 417 x10^3/uL (130-400); RED BLOOD COUNT 3.49 x10^6/uL (4.38-5.82); RED CELL DISTRIBUTION WIDTH 15.4 % (9.4-14.8); TOTAL PROTEIN 6.1 g/dL (6.4-8.2)
[2019-08-09 06:45] LABS: BASOPHILS # (AUTO) 0.03 x10^3/uL (0-0.1); BASOPHILS % (AUTO) 0 % (0-1); EOSINOPHILS # (AUTO) 0.79 x10^3/uL (0-0.4); EOSINOPHILS % (AUTO) 4 % (1-7); LYMPHOCYTES # (AUTO) 1.28 x10^3/uL (1-3.4); LYMPHOCYTES % (AUTO) 7 % (22-44); MD SCAN; MONOCYTES # (AUTO) 1.52 x10^3/uL (0.2-0.8); MONOCYTES % (AUTO) 8 % (2-9); NEUTROPHILS # (AUTO) 15.45 x10^3/uL (1.8-6.8); NEUTROPHILS % (AUTO) 81 % (42-75)
[2019-08-09 07:11] VITALS: BP 108/74
[2019-08-09] MEDS ORDERED: LIDOCAINE 1%, 10ML ONE (09:14)
[2019-08-09] MEDS: SPIRONOLACTONE 25 MG TABLET PO SCH (09:23)
[2019-08-09] MEDS: THIAMINE 100MG TABLET PO SCH (09:23)
[2019-08-09] MEDS: AMLODIPINE 10 MG TAB PO SCH (09:23)
[2019-08-09] MEDS: LEVOFLOXACIN 750 MG TABLET PO SCH (09:23)
[2019-08-09] MEDS: MULTIVITAMINS/MINERALS TABLET PO SCH (09:23)
[2019-08-09] MEDS: FLUTICASONE NASAL SPRAY 16GM NAS SCH ×2 (09:23→21:02)
[2019-08-09] MEDS: LISINOPRIL 20 MG TABLET PO SCH (09:23)
[2019-08-09] MEDS: GABAPENTIN 100 MG CAPSULE PO SCH ×3 (09:23→21:02)
[2019-08-09] MEDS: FUROSEMIDE 10 MG/ML ORAL SOL PO SCH (09:24)
[2019-08-09 12:15] VITALS: BP 102/70
[2019-08-09 19:47] VITALS: BP 98/66
[2019-08-09] MEDS: ENOXAPARIN 40 MG/0.4 ML SQ SCH (21:02)
[2019-08-09] MEDS: TRAZODONE 150MG TABLET PO PRN (22:08)
[2019-08-10 01:28] VITALS: BP 95/62
[2019-08-10] MEDS: ACETAMINOPHEN 500 MG TABLET PO PRN ×2 (03:02→11:10)
[2019-08-10] MEDS: PANTOPROZOLE 40MG TABLET PO SCH (05:54)
[2019-08-10 06:34] VITALS: BP 110/75
[2019-08-10 08:07] LABS: MEAN CORPUSCULAR HEMOGLOBIN 30.9 pg (27.5-34.5); MEAN CORPUSCULAR HGB CONC 32.4 g/dL (33.2-36.2); MEAN CORPUSCULAR VOLUME 95.6 fL (81-97); MEAN PLATELET VOLUME 10.6 fL (7.4-10.4); PLATELET COUNT 433 x10^3/uL (130-400); RED BLOOD COUNT 3.27 x10^6/uL (4.38-5.82); RED CELL DISTRIBUTION WIDTH 15.4 % (9.4-14.8)
[2019-08-10 08:19] LABS: ALANINE AMINOTRANSFERASE 41 U/L (12-78); ALBUMIN 1.6 g/dL (3.4-5.0); ANION GAP 4 mmol/L (5-15); CALCIUM 7.9 mg/dL (8.5-10.1); CHLORIDE 104 mmol/L (98-107); CREATININE 0.53 mg/dL (0.7-1.3)
[2019-08-10 08:21] LABS: ALKALINE PHOSPHATASE 135 U/L (45-117); BILIRUBIN,TOTAL 0.7 mg/dL (0.2-1.0); TOTAL PROTEIN 6.2 g/dL (6.4-8.2)
[2019-08-10 08:57] LABS: MD YES
[2019-08-10 08:58] LABS: BAND#(MANUAL) 0.64 x10^3/uL; BANDS%(MANUAL) 3 % (0-7); EOS#(MANUAL) 0.86 x10^3/uL (0.0-0.4); EOS% (MANUAL) 4 % (1-7); LYMPH#(MANUAL) 0.64 x10^3/uL (1-3.4); LYMPHS% (MANUAL) 3 % (22-44); MONOS#(MANUAL) 1.93 x10^3/uL (0.3-2.7); MONOS% (MANUAL) 9 % (2-9); SEG#(MANUAL) 17.33 x10^3/uL (1.8-6.8); SEGS% (MANUAL) 81 % (42-75)
[2019-08-10 08:59] LABS: ANISOCYTOSIS 1+
[2019-08-10 09:00] LABS: <PLATELET ESTIMATE> INCREASED; HYPOCHROMIA 1+; LARGE PLATELETS 1+; POLYCHROMASIA 1+
[2019-08-10 09:01] LABS: TARGET CELLS 1+
[2019-08-10] MEDS: MULTIVITAMINS/MINERALS TABLET PO SCH (09:26)
[2019-08-10] MEDS: FUROSEMIDE 10 MG/ML ORAL SOL PO SCH (09:26)
[2019-08-10] MEDS: GABAPENTIN 100 MG CAPSULE PO SCH ×3 (09:26→20:25)
[2019-08-10] MEDS: LEVOFLOXACIN 750 MG TABLET PO SCH (09:26)
[2019-08-10] MEDS: AMLODIPINE 10 MG TAB PO SCH (09:26)
[2019-08-10] MEDS: THIAMINE 100MG TABLET PO SCH (09:27)
[2019-08-10] MEDS: FLUTICASONE NASAL SPRAY 16GM NAS SCH ×2 (09:27→20:25)
[2019-08-10] MEDS: LISINOPRIL 20 MG TABLET PO SCH (09:27)
[2019-08-10] MEDS: SPIRONOLACTONE 25 MG TABLET PO SCH (09:27)
[2019-08-10 12:13] VITALS: BP 123/73
[2019-08-10 19:05] VITALS: BP 107/75
[2019-08-10] MEDS: ENOXAPARIN 40 MG/0.4 ML SQ SCH (20:26)
[2019-08-10] MEDS: TRAZODONE 150MG TABLET PO PRN (22:47)
[2019-08-11 00:27] VITALS: BP 90/59
[2019-08-11] MEDS: PANTOPROZOLE 40MG TABLET PO SCH (05:33)
[2019-08-11 06:38] LABS: MEAN CORPUSCULAR HEMOGLOBIN 30.6 pg (27.5-34.5); MEAN CORPUSCULAR HGB CONC 32.5 g/dL (33.2-36.2); MEAN CORPUSCULAR VOLUME 94.2 fL (81-97); PLATELET COUNT 421 x10^3/uL (130-400); RED BLOOD COUNT 3.19 x10^6/uL (4.38-5.82); RED CELL DISTRIBUTION WIDTH 15.5 % (9.4-14.8)
[2019-08-11 06:52] LABS: ALBUMIN 1.6 g/dL (3.4-5.0); ANION GAP 3 mmol/L (5-15); CALCIUM 7.9 mg/dL (8.5-10.1); CHLORIDE 105 mmol/L (98-107)
[2019-08-11 06:55] LABS: ALANINE AMINOTRANSFERASE 37 U/L (12-78); ALKALINE PHOSPHATASE 118 U/L (45-117); BILIRUBIN,TOTAL 0.8 mg/dL (0.2-1.0); CREATININE 0.49 mg/dL (0.7-1.3)
[2019-08-11 07:14] LABS: BASOPHILS # (AUTO) 0.17 x10^3/uL (0-0.1); BASOPHILS % (AUTO) 1 % (0-1); EOSINOPHILS # (AUTO) 0.62 x10^3/uL (0-0.4); EOSINOPHILS % (AUTO) 3 % (1-7); LYMPHOCYTES # (AUTO) 1.44 x10^3/uL (1-3.4); LYMPHOCYTES % (AUTO) 7 % (22-44); MD SCAN; MONOCYTES # (AUTO) 1.94 x10^3/uL (0.2-0.8); MONOCYTES % (AUTO) 9 % (2-9); NEUTROPHILS # (AUTO) 17.46 x10^3/uL (1.8-6.8); NEUTROPHILS % (AUTO) 81 % (42-75)
[2019-08-11 08:18] VITALS: BP 106/73
[2019-08-11] MEDS: THIAMINE 100MG TABLET PO SCH (09:01)
[2019-08-11] MEDS: AMLODIPINE 10 MG TAB PO SCH (09:01)
[2019-08-11] MEDS: GABAPENTIN 100 MG CAPSULE PO SCH ×3 (09:02→21:21)
[2019-08-11] MEDS: MULTIVITAMINS/MINERALS TABLET PO SCH (09:03)
[2019-08-11] MEDS: LISINOPRIL 20 MG TABLET PO SCH (09:03)
[2019-08-11] MEDS: LEVOFLOXACIN 750 MG TABLET PO SCH (09:04)
[2019-08-11] MEDS: SPIRONOLACTONE 25 MG TABLET PO SCH (09:05)
[2019-08-11] MEDS: FLUTICASONE NASAL SPRAY 16GM NAS SCH ×2 (09:06→21:21)
[2019-08-11] MEDS: FUROSEMIDE 10 MG/ML ORAL SOL PO SCH (09:08)
[2019-08-11] MEDS: ACETAMINOPHEN 500 MG TABLET PO PRN (11:44)
[2019-08-11 14:47] VITALS: BP 98/64
[2019-08-11 19:00] VITALS: BP 96/60
[2019-08-11] MEDS: ENOXAPARIN 40 MG/0.4 ML SQ SCH (21:21)
[2019-08-11] MEDS: TRAZODONE 150MG TABLET PO PRN (23:07)
[2019-08-12 01:17] VITALS: BP 103/61
[2019-08-12] MEDS: PANTOPROZOLE 40MG TABLET PO SCH (05:02)
[2019-08-12 06:29] LABS: MEAN CORPUSCULAR HEMOGLOBIN 29.9 pg (27.5-34.5); MEAN CORPUSCULAR HGB CONC 31.6 g/dL (33.2-36.2); MEAN CORPUSCULAR VOLUME 94.6 fL (81-97); MEAN PLATELET VOLUME 9.8 fL (7.4-10.4); PLATELET COUNT 413 x10^3/uL (130-400); RED BLOOD COUNT 3.33 x10^6/uL (4.38-5.82); RED CELL DISTRIBUTION WIDTH 15.9 % (9.4-14.8)
[2019-08-12 06:42] LABS: ALANINE AMINOTRANSFERASE 35 U/L (12-78); ALBUMIN 1.6 g/dL (3.4-5.0); ANION GAP 6 mmol/L (5-15); CALCIUM 7.6 mg/dL (8.5-10.1); CHLORIDE 104 mmol/L (98-107); CREATININE 0.62 mg/dL (0.7-1.3)
[2019-08-12 06:44] LABS: ALKALINE PHOSPHATASE 124 U/L (45-117); BILIRUBIN,TOTAL 0.7 mg/dL (0.2-1.0); TOTAL PROTEIN 6.1 g/dL (6.4-8.2)
[2019-08-12 06:48] LABS: BASOPHILS # (AUTO) 0.09 x10^3/uL (0-0.1); BASOPHILS % (AUTO) 0 % (0-1); EOSINOPHILS # (AUTO) 0.66 x10^3/uL (0-0.4); EOSINOPHILS % (AUTO) 3 % (1-7); LYMPHOCYTES # (AUTO) 1.58 x10^3/uL (1-3.4); LYMPHOCYTES % (AUTO) 7 % (22-44); MD SCAN; MONOCYTES # (AUTO) 1.55 x10^3/uL (0.2-0.8); MONOCYTES % (AUTO) 7 % (2-9); NEUTROPHILS # (AUTO) 17.48 x10^3/uL (1.8-6.8); NEUTROPHILS % (AUTO) 82 % (42-75)
[2019-08-12 06:53] VITALS: BP 105/72
[2019-08-12] MEDS: LEVOFLOXACIN 750 MG TABLET PO SCH (08:43)
[2019-08-12] MEDS: FLUTICASONE NASAL SPRAY 16GM NAS SCH ×2 (08:43→20:50)
[2019-08-12] MEDS: MULTIVITAMINS/MINERALS TABLET PO SCH (08:43)
[2019-08-12] MEDS: THIAMINE 100MG TABLET PO SCH (08:44)
[2019-08-12] MEDS: GABAPENTIN 100 MG CAPSULE PO SCH ×3 (08:44→20:50)
[2019-08-12] MEDS: AMLODIPINE 10 MG TAB PO SCH (08:45)
[2019-08-12] MEDS: SPIRONOLACTONE 25 MG TABLET PO SCH (08:45)
[2019-08-12] MEDS: LISINOPRIL 20 MG TABLET PO SCH (08:45)
[2019-08-12] MEDS: FUROSEMIDE 10 MG/ML ORAL SOL PO SCH (08:48)
[2019-08-12] MEDS: ACETAMINOPHEN 500 MG TABLET PO PRN (10:26)
[2019-08-12 13:29] VITALS: BP 98/64
[2019-08-12 19:58] VITALS: BP 99/66
[2019-08-12] MEDS: ENOXAPARIN 40 MG/0.4 ML SQ SCH (20:51)
[2019-08-13 00:56] VITALS: BP 106/73
[2019-08-13] MEDS: ACETAMINOPHEN 500 MG TABLET PO PRN ×2 (01:04→13:40)
[2019-08-13] MEDS: PANTOPROZOLE 40MG TABLET PO SCH (05:45)
[2019-08-13 07:10] VITALS: BP 113/81
[2019-08-13 07:13] LABS: MEAN CORPUSCULAR HEMOGLOBIN 29.9 pg (27.5-34.5); MEAN CORPUSCULAR HGB CONC 31.8 g/dL (33.2-36.2); MEAN CORPUSCULAR VOLUME 94.3 fL (81-97); MEAN PLATELET VOLUME 10.3 fL (7.4-10.4); PLATELET COUNT 409 x10^3/uL (130-400); RED BLOOD COUNT 3.37 x10^6/uL (4.38-5.82); RED CELL DISTRIBUTION WIDTH 15.6 % (9.4-14.8)
[2019-08-13 07:22] LABS: ALBUMIN 1.6 g/dL (3.4-5.0); ANION GAP 7 mmol/L (5-15); CALCIUM 7.7 mg/dL (8.5-10.1); CHLORIDE 105 mmol/L (98-107)
[2019-08-13 07:27] LABS: ALANINE AMINOTRANSFERASE 36 U/L (12-78); ALKALINE PHOSPHATASE 122 U/L (45-117); BILIRUBIN,TOTAL 0.7 mg/dL (0.2-1.0); CREATININE 0.56 mg/dL (0.7-1.3); TOTAL PROTEIN 6.2 g/dL (6.4-8.2)
[2019-08-13 08:31] LABS: BASOPHILS # (AUTO) 0.08 x10^3/uL (0-0.1); BASOPHILS % (AUTO) 0 % (0-1); EOSINOPHILS # (AUTO) 0.75 x10^3/uL (0-0.4); EOSINOPHILS % (AUTO) 4 % (1-7); LYMPHOCYTES # (AUTO) 1.47 x10^3/uL (1-3.4); LYMPHOCYTES % (AUTO) 7 % (22-44); MD SCAN; MONOCYTES # (AUTO) 1.84 x10^3/uL (0.2-0.8); MONOCYTES % (AUTO) 9 % (2-9); NEUTROPHILS # (AUTO) 17.15 x10^3/uL (1.8-6.8); NEUTROPHILS % (AUTO) 81 % (42-75)
[2019-08-13] MEDS ORDERED: FUROSEMIDE 20 MG TABLET ONE (08:56)
[2019-08-13] MEDS: FUROSEMIDE 10 MG/ML ORAL SOL PO SCH (09:00)
[2019-08-13] MEDS: GABAPENTIN 100 MG CAPSULE PO SCH ×3 (09:00→20:44)
[2019-08-13] MEDS: THIAMINE 100MG TABLET PO SCH (09:00)
[2019-08-13] MEDS: LEVOFLOXACIN 750 MG TABLET PO SCH (09:00)
[2019-08-13] MEDS: LISINOPRIL 20 MG TABLET PO SCH (09:00)
[2019-08-13] MEDS: AMLODIPINE 10 MG TAB PO SCH (09:00)
[2019-08-13] MEDS: MULTIVITAMINS/MINERALS TABLET PO SCH (09:00)
[2019-08-13] MEDS: SPIRONOLACTONE 25 MG TABLET PO SCH (09:00)
[2019-08-13] MEDS: FLUTICASONE NASAL SPRAY 16GM NAS SCH ×2 (09:00→20:44)
[2019-08-13 12:21] VITALS: BP 126/76
[2019-08-13] MEDS: ENOXAPARIN 40 MG/0.4 ML SQ SCH (20:45)
[2019-08-13 21:33] VITALS: BP 123/82
[2019-08-14 03:30] VITALS: BP 114/74
[2019-08-14] MEDS: PANTOPROZOLE 40MG TABLET PO SCH (05:09)
[2019-08-14 06:21] LABS: MEAN CORPUSCULAR HGB CONC 32.4 g/dL (33.2-36.2); MEAN CORPUSCULAR VOLUME 92.5 fL (81-97); PLATELET COUNT 383 x10^3/uL (130-400); RED BLOOD COUNT 3.27 x10^6/uL (4.38-5.82); RED CELL DISTRIBUTION WIDTH 15.7 % (9.4-14.8)
[2019-08-14 06:26] LABS: ANION GAP 7 mmol/L (5-15); CALCIUM 7.7 mg/dL (8.5-10.1); CHLORIDE 101 mmol/L (98-107); CREATININE 0.55 mg/dL (0.7-1.3)
[2019-08-14 07:15] VITALS: BP 108/68
[2019-08-14 07:44] LABS: BASOPHILS # (AUTO) 0.05 x10^3/uL (0-0.1); BASOPHILS % (AUTO) 0 % (0-1); EOSINOPHILS # (AUTO) 0.91 x10^3/uL (0-0.4); EOSINOPHILS % (AUTO) 4 % (1-7); LYMPHOCYTES # (AUTO) 1.29 x10^3/uL (1-3.4); LYMPHOCYTES % (AUTO) 6 % (22-44); MD SCAN; MONOCYTES # (AUTO) 2.37 x10^3/uL (0.2-0.8); MONOCYTES % (AUTO) 11 % (2-9); NEUTROPHILS # (AUTO) 18.02 x10^3/uL (1.8-6.8); NEUTROPHILS % (AUTO) 80 % (42-75)
[2019-08-14] MEDS: AMLODIPINE 10 MG TAB PO SCH (08:45)
[2019-08-14] MEDS: THIAMINE 100MG TABLET PO SCH (08:45)
[2019-08-14] MEDS: GABAPENTIN 100 MG CAPSULE PO SCH ×3 (08:45→21:21)
[2019-08-14] MEDS: SPIRONOLACTONE 25 MG TABLET PO SCH (08:45)
[2019-08-14] MEDS: LISINOPRIL 20 MG TABLET PO SCH (08:45)
[2019-08-14] MEDS: MULTIVITAMINS/MINERALS TABLET PO SCH (08:45)
[2019-08-14] MEDS: LEVOFLOXACIN 750 MG TABLET PO SCH (08:45)
[2019-08-14] MEDS: FLUTICASONE NASAL SPRAY 16GM NAS SCH ×2 (08:45→21:21)
[2019-08-14] MEDS: FUROSEMIDE 10 MG/ML ORAL SOL PO SCH (08:46)
[2019-08-14 12:05] VITALS: BP 115/72
[2019-08-14 20:22] VITALS: BP 97/58
[2019-08-14] MEDS: ENOXAPARIN 40 MG/0.4 ML SQ SCH (21:21)
[2019-08-15 00:02] VITALS: BP 104/63
[2019-08-15 04:39] LABS: MEAN CORPUSCULAR HGB CONC 32.2 g/dL (33.2-36.2); MEAN CORPUSCULAR VOLUME 93.3 fL (81-97); MEAN PLATELET VOLUME 10.1 fL (7.4-10.4); PLATELET COUNT 375 x10^3/uL (130-400); RED BLOOD COUNT 3.27 x10^6/uL (4.38-5.82)
[2019-08-15 04:53] LABS: ANION GAP 6 mmol/L (5-15); CALCIUM 7.9 mg/dL (8.5-10.1); CHLORIDE 99 mmol/L (98-107)
[2019-08-15 04:55] LABS: CREATININE 0.49 mg/dL (0.7-1.3)
[2019-08-15] MEDS: PANTOPROZOLE 40MG TABLET PO SCH (05:32)
[2019-08-15 05:51] LABS: BASOPHILS # (AUTO) 0.03 x10^3/uL (0-0.1); BASOPHILS % (AUTO) 0 % (0-1); EOSINOPHILS # (AUTO) 0.72 x10^3/uL (0-0.4); EOSINOPHILS % (AUTO) 3 % (1-7); LYMPHOCYTES # (AUTO) 1.37 x10^3/uL (1-3.4); LYMPHOCYTES % (AUTO) 6 % (22-44); MD SCAN; MONOCYTES # (AUTO) 1.73 x10^3/uL (0.2-0.8); MONOCYTES % (AUTO) 8 % (2-9); NEUTROPHILS % (AUTO) 82 % (42-75)
[2019-08-15 06:27] VITALS: BP 108/72
[2019-08-15] MEDS: THIAMINE 100MG TABLET PO SCH (09:52)
[2019-08-15] MEDS: LEVOFLOXACIN 750 MG TABLET PO SCH (09:52)
[2019-08-15] MEDS: MULTIVITAMINS/MINERALS TABLET PO SCH (09:52)
[2019-08-15] MEDS: SPIRONOLACTONE 25 MG TABLET PO SCH (09:52)
[2019-08-15] MEDS: AMLODIPINE 10 MG TAB PO SCH (09:52)
[2019-08-15] MEDS: GABAPENTIN 100 MG CAPSULE PO SCH (09:52)
[2019-08-15] MEDS: LISINOPRIL 20 MG TABLET PO SCH (09:52)
[2019-08-15] MEDS: FUROSEMIDE 10 MG/ML ORAL SOL PO SCH (09:59)
[2019-08-15] MEDS: FLUTICASONE NASAL SPRAY 16GM NAS SCH (10:00)
[2019-08-15] MEDS ORDERED: FURO-93 PO (10:22)
[2019-08-15] MEDS ORDERED: SPIR25TA PO (10:22)
[2019-08-15] MEDS ORDERED: LEVO750T26 PO (10:22)
[2019-08-15] MEDS ORDERED: LIDOCAINE 1%, 10ML ONE (11:13)
[2019-08-15 12:05] VITALS: BP 109/65
== END 2019-08-15 14:28 | disposition home or self-care (01) | DRG 720 ==
LOC: ED 16:00 → EDIP 18:41 → 4EST 22:57
PROVIDERS: ADMIT Family Medicine; ATTEND Internal Medicine
PROC: 0W9G3ZZ Drainage of Peritoneal Cavity, Percutaneous Approach (ICD-10-PCS; principal; 2019-07-23)
PROC: 0W9G3ZZ Drainage of Peritoneal Cavity, Percutaneous Approach (ICD-10-PCS; 2019-07-31)
PROC: 0W9G3ZZ Drainage of Peritoneal Cavity, Percutaneous Approach (ICD-10-PCS; 2019-08-03)
PROC: 0W9G3ZZ Drainage of Peritoneal Cavity, Percutaneous Approach (ICD-10-PCS; 2019-08-05)
PROC: 0W9G3ZZ Drainage of Peritoneal Cavity, Percutaneous Approach (ICD-10-PCS; 2019-08-09)
PROC: 0W9G3ZZ Drainage of Peritoneal Cavity, Percutaneous Approach (ICD-10-PCS; 2019-08-15)
DX: A41.9 Sepsis, unspecified organism (principal); J96.01 Acute respiratory failure with hypoxia; G93.41 Metabolic encephalopathy; E43 Unspecified severe protein-calorie malnutrition; J90 Pleural effusion, not elsewhere classified; D69.6 Thrombocytopenia, unspecified; J15.9 Unspecified bacterial pneumonia; I42.6 Alcoholic cardiomyopathy; K70.11 Alcoholic hepatitis with ascites; M81.0 Age-related osteoporosis without current pathological fracture; I10 Essential (primary) hypertension; F12.10 Cannabis abuse, uncomplicated; R33.9 Retention of urine, unspecified; K40.90 Unilateral inguinal hernia, without obstruction or gangrene, not specified as recurrent; G89.29 Other chronic pain; F43.10 Post-traumatic stress disorder, unspecified; F17.210 Nicotine dependence, cigarettes, uncomplicated; K70.40 Alcoholic hepatic failure without coma; D63.8 Anemia in other chronic diseases classified elsewhere; K70.31 Alcoholic cirrhosis of liver with ascites; G62.1 Alcoholic polyneuropathy; J45.909 Unspecified asthma, uncomplicated; N41.0 Acute prostatitis; K76.0 Fatty (change of) liver, not elsewhere classified; J98.11 Atelectasis; F10.239 Alcohol dependence with withdrawal, unspecified; D53.9 Nutritional anemia, unspecified; E87.6 Hypokalemia; Z71.41 Alcohol abuse counseling and surveillance of alcoholic; Z68.22 Body mass index [BMI] 22.0-22.9, adult; Z90.49 Acquired absence of other specified parts of digestive tract; Z88.8 Allergy status to other drugs, medicaments and biological substances; Z87.01 Personal history of pneumonia (recurrent); Z79.899 Other long term (current) drug therapy
CPT/HCPCS: J3490 ×6; 36415; 49083; 71045; 71046; 71260; 72197; 74160; 76705; 80048; 80053; 80074; 80076; 80307; 81001; 82010; 82042; 82140; 82607; 82962; 83605; 83615; 83690; 83735; 83880; 84100; 84145; 84443; 85025; 85610; 85651; 85730; 86140; 87040; 87070; 87075; 87086; 87102; 87116; 87205; 87206; 89051; 93005; 93308; 96361; 96374; 96375; G0378; J0696; J1650; J1940; J2543; J2550; J3411; J3475; J3480; J7060; Q9967; A9575; C9113; J2060; J7030; J7040; J7050

== ENCOUNTER 2020-04-23 18:10 | Inpatient (IN) | payer MEDICAID ==
[~2020-04-23] VITALS: Ht 188 cm; Wt 75.8 kg
[~2020-04-23 18:10] MED LIST: ALBU8.5H8 INH; ALEN70TA3 PO; AMLO-211 PO; FURO-93 PO; GABA-826 PO; IBUP-1222 PO; LEVO750T26 PO; LISI-167 PO; NORT25CA78 PO; PROC5TAB2 PO; SERT100T PO; SPIR25TA PO; TRAZ150T62 PO; VITAMIN D PO
[2020-04-23] MEDS ORDERED: SODIUM CHLORIDE FLUSH 10ML SYR IVF ONE (18:30)
[2020-04-23 19:07] LABS: INTERNATIONAL NORMALIZED RATIO 1.76 (0.93-1.1); PROTHROMBIN TIME 18.5 Seconds (9.6-11.5)
[2020-04-23 19:10] LABS: ALANINE AMINOTRANSFERASE 21 U/L (12-78); ALBUMIN 1.5 g/dL (3.4-5.0); ANION GAP 19 mmol/L (5-15); CALCIUM 7.8 mg/dL (8.5-10.1); CHLORIDE 99 mmol/L (98-107); CREATININE 1.03 mg/dL (0.7-1.3)
[2020-04-23 19:15] LABS: ALKALINE PHOSPHATASE 168 U/L (45-117); TOTAL PROTEIN 7.6 g/dL (6.4-8.2)
[2020-04-23 19:16] LABS: MEAN PLATELET VOLUME 9.6 fL (7.4-10.4); PLATELET COUNT 145 x10^3/uL (130-400); RED BLOOD COUNT 2.52 x10^6/uL (4.38-5.82)
[2020-04-23 19:17] LABS: MEAN CORPUSCULAR HGB CONC 29.7 g/dL (33.2-36.2)
[2020-04-23 19:18] LABS: MD YES
[2020-04-23] MEDS ORDERED: DEXTROSE 50%, 50ML SYRINGE ONE ×2 (19:24→21:30)
[2020-04-23] MEDS ORDERED: DEXTROSE 50%, 50ML SYRINGE IVPush ONE ×2 (19:30→22:00)
--- NOTE | 2020-04-23 19:41 | NUR ---
PT SNT FROM [facility] FOR PARACENTESIS. PT ABD SWOLLEN AND DISTENDED. PT BLOOD GLUCOSE FOUND TO BE 46. MD NOTIFIED. SEE MAR FOR INTERVENTIONS
[2020-04-23] MEDS ORDERED: LIDOCAINE 1%, 10ML ONE (20:16)
[2020-04-23 20:31] LABS: BAND#(MANUAL) 3.69 x10^3/uL; BANDS%(MANUAL) 30 % (0-7); LYMPH#(MANUAL) 0.49 x10^3/uL (1-3.4); LYMPHS% (MANUAL) 4 % (22-44); METAMYELOCYTES# (MANUAL) 0.12 x10^3/uL (0-0); METAMYELOCYTES% (MANUAL) 1 % (0-1); MONOS#(MANUAL) 0.49 x10^3/uL (0.3-2.7); MONOS% (MANUAL) 4 % (2-9); SEGS% (MANUAL) 61 % (42-75)
[2020-04-23 20:32] LABS: ANISOCYTOSIS 2+
[2020-04-23 20:33] LABS: POLYCHROMASIA 1+
[2020-04-23 20:34] LABS: OVALOCYTES 1+
[2020-04-23 20:35] LABS: PMNS WITH VACUOLES 1+
[2020-04-23 20:36] LABS: <PLATELET ESTIMATE> ADEQUATE; <PLT MORPHOLOGY> NORMAL PLT MORPH
--- NOTE | 2020-04-23 20:43 | NUR ---
PT TO RAD AT THIS TIME
--- NOTE | 2020-04-23 21:45 | NUR ---
RECHECKED PT BLOOD GLUCOSE. SEE MAR FOR INTERVENTIONS
[2020-04-23] MEDS ORDERED: D5%-0.9% NACL 1,000 ML IV ONE (22:00)
[2020-04-23] MEDS ORDERED: SODIUM CHLORIDE FLUSH 10ML SYR IVF PRN (22:30)
[2020-04-23] MEDS ORDERED: PROCHLORPERAZINE 5 MG TABLET PO PRN (22:30)
[2020-04-23] MEDS ORDERED: CEFTRIAXONE PMX 2GM/50ML 50 ML ONE (22:36)
[2020-04-23] MEDS: CEFTRIAXONE PMX 2GM/50ML 50 ML IVPB SCH (22:40)
--- NOTE | 2020-04-23 22:40 | NUR ---
BLOOD CULTURES DRAWN PRIOR TO ADM OF ABX.
[2020-04-23] MEDS ORDERED: NACL IV SCH (23:00)
[2020-04-23] MEDS ORDERED: BISACODYL 10 MG SUPP PR PRN (23:00)
[2020-04-23] MEDS ORDERED: SODIUM BICARBONATE IV SCH (23:00)
[2020-04-23] MEDS ORDERED: CHLORDIAZEPOXIDE 10 MG CAPSULE PO PRN (23:00)
[2020-04-23] MEDS ORDERED: D5 IV SCH (23:00)
[2020-04-23] MEDS ORDERED: POLYETHYLENE GLYCOL 17 GM PACKET PO PRN (23:00)
[2020-04-23 23:42] VITALS: BP 106/63
[2020-04-23] MEDS: [UNRECOGNIZED DRUG - REMARK] MC SCH (23:45)
[2020-04-24] VITALS (16 sets, daily range): BP systolic 87–123; BP diastolic 43–68
[2020-04-24] MEDS: THIAMINE 100MG TABLET PO SCH ×3 (00:47→20:32)
[2020-04-24] MEDS: GABAPENTIN 100 MG CAPSULE PO SCH ×4 (00:47→20:32)
[2020-04-24] MEDS: TRAZODONE 150MG TABLET PO SCH ×2 (00:47→20:32)
[2020-04-24] MEDS: SERTRALINE 100MG TABLET PO SCH ×2 (00:47→20:32)
[2020-04-24] MEDS: NORTRIPTYLINE 25 MG CAPSULE PO SCH ×3 (01:10→20:32)
[2020-04-24 05:32] LABS: MEAN CORPUSCULAR HEMOGLOBIN 27.7 pg (27.5-34.5); MEAN PLATELET VOLUME 9.2 fL (7.4-10.4); PLATELET COUNT 94 x10^3/uL (130-400); RED BLOOD COUNT 2.22 x10^6/uL (4.38-5.82); RED CELL DISTRIBUTION WIDTH 20.2 % (9.4-14.8)
[2020-04-24 05:42] LABS: ALBUMIN 1.3 g/dL (3.4-5.0); ANION GAP 15 mmol/L (5-15); CALCIUM 7.5 mg/dL (8.5-10.1); CHLORIDE 99 mmol/L (98-107)
[2020-04-24 05:47] LABS: ALANINE AMINOTRANSFERASE 24 U/L (12-78); ALKALINE PHOSPHATASE 105 U/L (45-117); BILIRUBIN,TOTAL 0.8 mg/dL (0.2-1.0); CREATININE 0.91 mg/dL (0.7-1.3); TOTAL PROTEIN 6.6 g/dL (6.4-8.2)
[2020-04-24 05:49] LABS: MEAN CORPUSCULAR HGB CONC 29.7 g/dL (33.2-36.2)
[2020-04-24 06:09] LABS: MD YES
[2020-04-24 06:11] LABS: ANISOCYTOSIS 1+; BAND#(MANUAL) 4.99 x10^3/uL; BANDS%(MANUAL) 29 % (0-7); HYPOCHROMIA 1+; LYMPH#(MANUAL) 0.52 x10^3/uL (1-3.4); LYMPHS% (MANUAL) 3 % (22-44); METAMYELOCYTES# (MANUAL) 0.34 x10^3/uL (0-0); METAMYELOCYTES% (MANUAL) 2 % (0-1); MONOS#(MANUAL) 1.03 x10^3/uL (0.3-2.7); MONOS% (MANUAL) 6 % (2-9); MYELOCYTES# (MANUAL) 0.17 x10^3/uL (0-0); MYELOCYTES% (MANUAL) 1 % (0-0); SEG#(MANUAL) 10.15 x10^3/uL (1.8-6.8); SEGS% (MANUAL) 59 % (42-75)
[2020-04-24 06:12] LABS: OVALOCYTES 1+; POLYCHROMASIA 1+
[2020-04-24 06:15] LABS: <PLATELET ESTIMATE> DECREASED; <PLT MORPHOLOGY> NORMAL PLT MORPH
[2020-04-24] MEDS ORDERED: ACETAMINOPHEN 325 MG TABLET PO PRN (06:30)
[2020-04-24] MEDS ORDERED: PHYTONADIONE 5 MG TABLET PO ONE (06:30)
[2020-04-24] MEDS ORDERED: PHYTONADIONE 5 MG TABLET ONE (06:35)
[2020-04-24] MEDS ORDERED: ACETAMINOPHEN 325 MG TABLET ONE (06:36)
[2020-04-24 07:41] LABS: % IRON SATURATION 9 % (20-55); IRON LEVEL 11 mcg/dL (65-175); TOTAL IRON BINDING CAPACITY 124 mcg/dL (250-450)
[2020-04-24] MEDS: [UNRECOGNIZED DRUG - REMARK] MC SCH ×3 (07:45→22:39)
[2020-04-24] MEDS: FUROSEMIDE 20 MG TABLET PO SCH (08:34)
[2020-04-24] MEDS: PHYTONADIONE 5 MG TABLET PO SCH (08:35)
[2020-04-24] MEDS ORDERED: FOLIC ACID 1 MG TABLET PO SCH (09:00)
[2020-04-24] MEDS ORDERED: SPIRONOLACTONE 25 MG TABLET PO SCH (09:00)
[2020-04-24] MEDS ORDERED: ALENDRONATE 70 MG TABLET PO SCH (09:00)
[2020-04-24] MEDS ORDERED: CHOLECALCIFEROL 5,000u TAB PO SCH (09:00)
[2020-04-24] MEDS ORDERED: AMLODIPINE 10 MG TAB PO SCH (09:00)
[2020-04-24] MEDS ORDERED: LISINOPRIL 20 MG TABLET PO SCH (09:00)
[2020-04-24] MEDS ORDERED: SENNA/DOCUSATE TABLET PO SCH (09:00)
[2020-04-24] MEDS: METOPROLOL SUCCINATE 100 MG TAB.ER.24H PO SCH (10:36)
[2020-04-24] MEDS ORDERED: ALBUMIN HUMAN 25% 100 ML IV ONE (11:00)
[2020-04-24] MEDS: POTASSIUM CHLORIDE 10 MEQ in DEXTROSE 10% 1,000 ML IV SCH (16:30)
[2020-04-24] MEDS ORDERED: CALCIUM CARBONATE 500 MG TAB.CHEW PO PRN (22:30)
[2020-04-24] MEDS: CEFTRIAXONE PMX 2GM/50ML 50 ML IVPB SCH (22:46)
[2020-04-24 22:47] LABS: OCCULT BLOOD POSITIVE (NEGATIVE)
[2020-04-24] MEDS: LORazepam 2 MG/ML, 1ML IVPush PRN (23:26)
[2020-04-25] VITALS (8 sets, daily range): BP systolic 98–129; BP diastolic 60–84
[2020-04-25] MEDS: LORazepam 2 MG/ML, 1ML IVPush PRN (02:53)
[2020-04-25 05:05] LABS: MEAN CORPUSCULAR HEMOGLOBIN 28.1 pg (27.5-34.5); MEAN CORPUSCULAR HGB CONC 32.5 g/dL (33.2-36.2); MEAN PLATELET VOLUME 9.2 fL (7.4-10.4); PLATELET COUNT 60 x10^3/uL (130-400); RED BLOOD COUNT 2.95 x10^6/uL (4.38-5.82); RED CELL DISTRIBUTION WIDTH 18.1 % (9.4-14.8)
[2020-04-25 06:11] LABS: MD YES
[2020-04-25 06:13] LABS: ANISOCYTOSIS 1+; BAND#(MANUAL) 6.02 x10^3/uL; BANDS%(MANUAL) 20 % (0-7); LYMPH#(MANUAL) 2.11 x10^3/uL (1-3.4); LYMPHS% (MANUAL) 7 % (22-44); METAMYELOCYTES% (MANUAL) 1 % (0-1); MONOS#(MANUAL) 1.81 x10^3/uL (0.3-2.7); MONOS% (MANUAL) 6 % (2-9); OVALOCYTES 1+; POLYCHROMASIA 1+; SEG#(MANUAL) 19.87 x10^3/uL (1.8-6.8); SEGS% (MANUAL) 66 % (42-75)
[2020-04-25 06:14] LABS: <PLATELET ESTIMATE> DECREASED; TARGET CELLS 1+
[2020-04-25 06:15] LABS: <PLT MORPHOLOGY> NORMAL PLT MORPH; PMNS WITH VACUOLES 1+
[2020-04-25] MEDS: METOPROLOL SUCCINATE 100 MG TAB.ER.24H PO SCH (06:56)
[2020-04-25 07:23] LABS: O2 FLOW 10 L/min
[2020-04-25] MEDS: FUROSEMIDE 20 MG TABLET PO SCH (07:29)
[2020-04-25] MEDS ORDERED: FUROSEMIDE 40 MG/4 ML IV ONE (07:30)
[2020-04-25] MEDS ORDERED: FUROSEMIDE 40 MG/4 ML ONE (07:31)
[2020-04-25] MEDS: [UNRECOGNIZED DRUG - REMARK] MC SCH ×3 (07:59→21:48)
[2020-04-25] MEDS ORDERED: VANCOMYCIN PER PHARMACY MC PRN (08:00)
[2020-04-25] MEDS: FUROSEMIDE 40 MG/4 ML IV SCH ×4 (08:00→20:13)
[2020-04-25] MEDS: PHYTONADIONE 5 MG TABLET PO SCH (08:30)
[2020-04-25] MEDS ORDERED: VANCOMYCIN 2,000 MG in SODIUM CHLORIDE 0.9% 500 ML IV ONE (08:30)
[2020-04-25] MEDS ORDERED: PHARMACOKINETIC MONITORING MC PRN (08:30)
[2020-04-25 08:47] LABS: ANION GAP 5 mmol/L (5-15); CALCIUM 8.6 mg/dL (8.5-10.1); CHLORIDE 96 mmol/L (98-107)
[2020-04-25 08:48] LABS: ALANINE AMINOTRANSFERASE 27 U/L (12-78); ALBUMIN 1.8 g/dL (3.4-5.0); ALKALINE PHOSPHATASE 94 U/L (45-117); BILIRUBIN,TOTAL 1.7 mg/dL (0.2-1.0); CREATININE 0.94 mg/dL (0.7-1.3); TOTAL PROTEIN 7.8 g/dL (6.4-8.2)
[2020-04-25] MEDS ORDERED: LIDOCAINE 1%, 10ML ONE (08:49)
[2020-04-25] MEDS: methylPREDNISolone SOD SUCC 40 MG/ML IV SCH ×2 (09:41→16:50)
[2020-04-25] MEDS: PIPERACILLIN/TAZO/PMX 3.375GM 50 ML IV SCH ×3 (09:41→21:48)
[2020-04-25] MEDS ORDERED: SCOPOLAMINE 1MG PATCH TD SCH (13:30)
[2020-04-25] MEDS: POTASSIUM CHLORIDE 10 MEQ in DEXTROSE 10% 1,000 ML IV SCH (16:50)
[2020-04-25] MEDS: HYDROmorphone 1 MG/ML, 1ML INJ IV PRN (17:11)
[2020-04-25] MEDS: VANCOMYCIN 1,600 MG in SODIUM CHLORIDE 0.9% 250 ML IV SCH (20:13)
[2020-04-26 00:08] VITALS: BP 97/70
[2020-04-26] MEDS: methylPREDNISolone SOD SUCC 40 MG/ML IV SCH ×2 (00:49→10:01)
[2020-04-26] MEDS: PIPERACILLIN/TAZO/PMX 3.375GM 50 ML IV SCH (03:12)
[2020-04-26] MEDS: [UNRECOGNIZED DRUG - REMARK] MC SCH (05:18)
[2020-04-26] MEDS: METOPROLOL SUCCINATE 100 MG TAB.ER.24H PO SCH (05:21)
[2020-04-26 07:18] LABS: MEAN CORPUSCULAR HEMOGLOBIN 27.8 pg (27.5-34.5); MEAN CORPUSCULAR HGB CONC 31.9 g/dL (33.2-36.2); MEAN PLATELET VOLUME 9.6 fL (7.4-10.4); RED BLOOD COUNT 3.32 x10^6/uL (4.38-5.82); RED CELL DISTRIBUTION WIDTH 18.6 % (9.4-14.8)
[2020-04-26 07:29] LABS: ALANINE AMINOTRANSFERASE 17 U/L (12-78); ALBUMIN 1.3 g/dL (3.4-5.0); ALKALINE PHOSPHATASE 69 U/L (45-117); ANION GAP 6 mmol/L (5-15); BILIRUBIN,TOTAL 1.1 mg/dL (0.2-1.0); CALCIUM 8.2 mg/dL (8.5-10.1); CHLORIDE 100 mmol/L (98-107); CREATININE 0.77 mg/dL (0.7-1.3); TOTAL PROTEIN 6.2 g/dL (6.4-8.2)
[2020-04-26 07:35] VITALS: BP 91/60
[2020-04-26 07:58] LABS: PLATELET COUNT 46 x10^3/uL (130-400)
[2020-04-26 07:59] LABS: MD YES
[2020-04-26 08:01] LABS: ANISOCYTOSIS 1+; BAND#(MANUAL) 0.15 x10^3/uL; BANDS%(MANUAL) 1 % (0-7); LYMPH#(MANUAL) 0.46 x10^3/uL (1-3.4); LYMPHS% (MANUAL) 3 % (22-44); MONOS#(MANUAL) 0.31 x10^3/uL (0.3-2.7); MONOS% (MANUAL) 2 % (2-9); OVALOCYTES 1+; POLYCHROMASIA 1+; SEG#(MANUAL) 14.38 x10^3/uL (1.8-6.8); SEGS% (MANUAL) 94 % (42-75); TARGET CELLS 1+
[2020-04-26 08:02] LABS: <PLATELET ESTIMATE> DECREASED; <PLT MORPHOLOGY> NORMAL PLT MORPH; PMNS WITH VACUOLES 1+
[2020-04-26 08:03] LABS: HYPOCHROMIA 1+
[2020-04-26] MEDS: FUROSEMIDE 40 MG/4 ML IV SCH ×3 (10:01→20:02)
[2020-04-26] MEDS: PHYTONADIONE 5 MG TABLET PO SCH (10:03)
[2020-04-26] MEDS: VANCOMYCIN 1,600 MG in SODIUM CHLORIDE 0.9% 250 ML IV SCH (10:20)
[2020-04-26] MEDS ORDERED: CEFTAZIDIME PMX 2 GM/50ML 50 ML IV SCH (10:30)
[2020-04-26] MEDS ORDERED: GENTAMICIN PER PHARMACY MC PRN (12:00)
[2020-04-26 12:03] VITALS: BP 110/62
[2020-04-26] MEDS ORDERED: GENTAMICIN 200 MG in SODIUM CHLORIDE 0.9% 50 ML IV ONE (12:30)
[2020-04-26] MEDS ORDERED: PHARMACOKINETIC CONSULTATION MC ONE (12:30)
[2020-04-26] MEDS ORDERED: PHARMACOKINETIC MONITORING MC PRN (12:30)
[2020-04-26] MEDS: METRONIDAZOLE PMX 500MG/100ML 100 ML IV SCH ×2 (12:33→20:02)
[2020-04-26] MEDS: CEFTRIAXONE PMX 2GM/50ML 50 ML IVPB SCH (13:23)
[2020-04-26 18:26] VITALS: BP 97/64
[2020-04-26 20:09] VITALS: BP 101/65
[2020-04-26] MEDS ORDERED: GENTAMICIN 120 MG in SODIUM CHLORIDE 0.9% 50 ML IV SCH (21:00)
[2020-04-26] MEDS: GENTAMICIN 160 MG in SODIUM CHLORIDE 0.9% 50 ML IV SCH (23:16)
[2020-04-27] VITALS (10 sets, daily range): BP systolic 98–112; BP diastolic 61–73
[2020-04-27] MEDS: METRONIDAZOLE PMX 500MG/100ML 100 ML IV SCH ×2 (04:45→12:19)
[2020-04-27] MEDS: METOPROLOL SUCCINATE 100 MG TAB.ER.24H PO SCH (05:37)
[2020-04-27] MEDS: GENTAMICIN 160 MG in SODIUM CHLORIDE 0.9% 50 ML IV SCH (06:09)
[2020-04-27 06:30] LABS: MEAN CORPUSCULAR HEMOGLOBIN 27.9 pg (27.5-34.5); MEAN CORPUSCULAR HGB CONC 31.9 g/dL (33.2-36.2); MEAN PLATELET VOLUME 9.6 fL (7.4-10.4); RED BLOOD COUNT 3.51 x10^6/uL (4.38-5.82); RED CELL DISTRIBUTION WIDTH 18.6 % (9.4-14.8)
[2020-04-27] MEDS: POTASSIUM CHLORIDE 10 MEQ in DEXTROSE 10% 1,000 ML IV SCH ×2 (06:31→06:32)
[2020-04-27 06:53] LABS: ANION GAP 5 mmol/L (5-15); CALCIUM 8.6 mg/dL (8.5-10.1); CHLORIDE 101 mmol/L (98-107); CREATININE 0.75 mg/dL (0.7-1.3)
[2020-04-27 06:58] LABS: PLATELET COUNT 35 x10^3/uL (130-400)
[2020-04-27 08:07] LABS: MD YES
[2020-04-27 08:08] LABS: <PLATELET ESTIMATE> DECREASED; <PLT MORPHOLOGY> NORMAL PLT MORPH; ANISOCYTOSIS 1+; HYPOCHROMIA 1+; LYMPH#(MANUAL) 0.34 x10^3/uL (1-3.4); LYMPHS% (MANUAL) 2 % (22-44); MONOS#(MANUAL) 2.54 x10^3/uL (0.3-2.7); MONOS% (MANUAL) 15 % (2-9); OVALOCYTES 1+; POLYCHROMASIA 1+; SEG#(MANUAL) 14.03 x10^3/uL (1.8-6.8); SEGS% (MANUAL) 83 % (42-75); TARGET CELLS 1+
[2020-04-27] MEDS: PHYTONADIONE 5 MG TABLET PO SCH (08:30)
[2020-04-27] MEDS: FUROSEMIDE 40 MG/4 ML IV SCH ×3 (08:34→22:36)
[2020-04-27] MEDS: LORazepam 2 MG/ML, 1ML IVPush PRN ×2 (08:39→15:45)
[2020-04-27 13:28] LABS: INTERNATIONAL NORMALIZED RATIO 1.57 (0.93-1.1); PROTHROMBIN TIME 16.6 Seconds (9.6-11.5)
[2020-04-27] MEDS ORDERED: POTASSIUM CHLORIDE 40 MEQ in SODIUM CHLORIDE 0.9% 500 ML IV ONE (13:30)
[2020-04-27] MEDS: CEFTRIAXONE PMX 2GM/50ML 50 ML IVPB SCH (13:44)
[2020-04-27] MEDS ORDERED: LIDOCAINE 1%, 10ML ONE (14:01)
[2020-04-27] MEDS ORDERED: GENTAMICIN 160 MG in SODIUM CHLORIDE 0.9% 50 ML IV SCH (18:00)
[2020-04-27] MEDS ORDERED: GENTAMICIN 140 MG in SODIUM CHLORIDE 0.9% 50 ML IV SCH (18:00)
[2020-04-28 00:47] VITALS: BP 119/79
[2020-04-28] MEDS: METRONIDAZOLE PMX 500MG/100ML 100 ML IV SCH ×2 (01:08→09:32)
[2020-04-28 01:25] VITALS: BP 110/76
[2020-04-28 01:45] VITALS: BP 116/76
[2020-04-28] MEDS: METOPROLOL SUCCINATE 100 MG TAB.ER.24H PO SCH (04:58)
[2020-04-28 06:01] LABS: BASOPHILS % (AUTO) 0 % (0-1); EOSINOPHILS % (AUTO) 0 % (1-7); LYMPHOCYTES % (AUTO) 9 % (22-44); MEAN CORPUSCULAR HEMOGLOBIN 28.3 pg (27.5-34.5); MEAN CORPUSCULAR HGB CONC 32.2 g/dL (33.2-36.2); MEAN PLATELET VOLUME 9.5 fL (7.4-10.4); MONOCYTES % (AUTO) 19 % (2-9); NEUTROPHILS % (AUTO) 72 % (42-75); RED BLOOD COUNT 3.36 x10^6/uL (4.38-5.82); RED CELL DISTRIBUTION WIDTH 18.3 % (9.4-14.8)
[2020-04-28 06:06] LABS: PLATELET COUNT 26 x10^3/uL (130-400)
[2020-04-28 06:24] LABS: ALBUMIN 1.6 g/dL (3.4-5.0); ANION GAP 4 mmol/L (5-15); CALCIUM 8.4 mg/dL (8.5-10.1); CHLORIDE 105 mmol/L (98-107)
[2020-04-28 06:28] LABS: ALANINE AMINOTRANSFERASE 20 U/L (12-78); ALKALINE PHOSPHATASE 70 U/L (45-117); BILIRUBIN,TOTAL 1.4 mg/dL (0.2-1.0); CREATININE 0.59 mg/dL (0.7-1.3); TOTAL PROTEIN 6.6 g/dL (6.4-8.2)
[2020-04-28 07:33] VITALS: BP 115/64
[2020-04-28] MEDS ORDERED: BISACODYL 10 MG SUPP PR PRN (08:00)
[2020-04-28 08:11] LABS: MD SCAN
[2020-04-28] MEDS ORDERED: POTASSIUM CHLORIDE 40 MEQ in SODIUM CHLORIDE 0.9% 500 ML IV ONE (08:30)
[2020-04-28] MEDS: PHYTONADIONE 5 MG TABLET PO SCH (08:58)
[2020-04-28] MEDS: FUROSEMIDE 40 MG/4 ML IV SCH (09:16)
[2020-04-28] MEDS: LORazepam 2 MG/ML, 1ML IVPush PRN (09:22)
[2020-04-28] MEDS ORDERED: AMOX600S36 PO (11:18)
[2020-04-28] MEDS ORDERED: FURO-93 PO (11:18)
[2020-04-28 11:59] VITALS: BP 119/80
[2020-04-28] MEDS: HYDROmorphone 1 MG/ML, 1ML INJ IV PRN (12:32)
[2020-04-28] MEDS: POTASSIUM CHLORIDE 10 MEQ in DEXTROSE 10% 1,000 ML IV SCH (13:00)
== END 2020-04-28 13:19 | disposition hospice, home (50) | DRG 720 ==
LOC: ED 22:58 → 5SO 23:30 → 4WST 04-24 11:09
PROVIDERS: ADMIT Family Medicine; ATTEND Internal Medicine
PROC: 30233N1 Transfusion of Nonautologous Red Blood Cells into Peripheral Vein, Percutaneous Approach (ICD-10-PCS; 2020-04-24)
PROC: 0W9G3ZZ Drainage of Peritoneal Cavity, Percutaneous Approach (ICD-10-PCS; principal; 2020-04-25)
PROC: 0W9G3ZZ Drainage of Peritoneal Cavity, Percutaneous Approach (ICD-10-PCS; 2020-04-27)
PROC: 30233K1 Transfusion of Nonautologous Frozen Plasma into Peripheral Vein, Percutaneous Approach (ICD-10-PCS; 2020-04-27)
DX: A41.9 Sepsis, unspecified organism (principal); D61.818 Other pancytopenia; D62 Acute posthemorrhagic anemia; D68.4 Acquired coagulation factor deficiency; E16.2 Hypoglycemia, unspecified; E43 Unspecified severe protein-calorie malnutrition; E87.1 Hypo-osmolality and hyponatremia; E87.70 Fluid overload, unspecified; F10.20 Alcohol dependence, uncomplicated; B96.89 Other specified bacterial agents as the cause of diseases classified elsewhere; F12.10 Cannabis abuse, uncomplicated; F17.210 Nicotine dependence, cigarettes, uncomplicated; F32.9 Major depressive disorder, single episode, unspecified; F43.10 Post-traumatic stress disorder, unspecified; G62.1 Alcoholic polyneuropathy; G92 Toxic encephalopathy; I10 Essential (primary) hypertension; I95.9 Hypotension, unspecified; R73.9 Hyperglycemia, unspecified; Z51.5 Encounter for palliative care; Z20.828 Contact with and (suspected) exposure to other viral communicable diseases; J96.01 Acute respiratory failure with hypoxia; K65.9 Peritonitis, unspecified; K70.31 Alcoholic cirrhosis of liver with ascites; K72.90 Hepatic failure, unspecified without coma; K76.6 Portal hypertension; M81.0 Age-related osteoporosis without current pathological fracture; N17.9 Acute kidney failure, unspecified; Z66 Do not resuscitate; Z79.899 Other long term (current) drug therapy; Z87.01 Personal history of pneumonia (recurrent)
CPT/HCPCS: J3490 ×3; 36415; 36430; 36600; 49083; 71045; 80048; 80053; 80170; 82042; 82140; 82272; 82330; 82803; 82962; 83540; 83550; 83615; 83690; 83735; 83880; 84100; 85014; 85018; 85025; 85610; 85730; 86850; 86900; 86923; 87040; 87070; 87077; 87186; 87205; 89051; 96372; 99285; G0378; J0696; J1170; J1940; J2543; J3370; J3480; J7042; P9047; J1580; J2060; J2920; J7040; J7050; P9016; P9017; U0003

== ENCOUNTER 2020-11-28 00:29 | Emergency (ER) | payer MEDICAID ==
[~2020-11-28] VITALS: Ht 182.9 cm; Wt 77.6 kg
[~2020-11-28 00:29] MED LIST changes: +AMOX600S36 PO
[2020-11-28 00:32] VITALS: BP 121/68
--- NOTE | 2020-11-28 01:45 | NUR ---
DID NOT ANSWER FOR A WALK TO THE PATIENTS ROOM.
--- NOTE | 2020-11-28 02:17 | NUR ---
N/a called [phone] na called [phone] na called [phone] searched bathrooms/outside
== END 2020-11-28 02:19 | disposition left against medical advice (07) ==
LOC: ED 00:34
DX: M79.89 Other specified soft tissue disorders (principal); Z53.21 Procedure and treatment not carried out due to patient leaving prior to being seen by health care provider

== ENCOUNTER 2020-12-02 05:28 | Emergency (ER) | payer MEDICAID ==
[~2020-12-02] VITALS: Ht 188 cm; Wt 77.6 kg
--- NOTE | 2020-12-02 05:36 | NUR ---
RUSSEL FROM RETIREMENT. PT NEEDS TO BE MEDICALLY CLEARED TO GO BACK TO RETIREMENT. PT BROUGHT IN FOR PEDAL EDEMA. PT AMBULATED FROM [facility] TO [facility]. PT URINATED CLEAR, YELLOW, CONCENTRATED URINE. PTS LEGS APPEAR SWOLLEN WEL HIS STOMACH WHICH LOOKS ROUNDED. PT WITH 1 AGENCY LEGAL COUNSEL. ATTACHED TO MONITORS. VSS. LAKHANI. BED IN LOW POSITION, RAILS ENGAGED, CALL LIGHT WITHIN REACH.
[2020-12-02] MEDS ORDERED: FUROSEMIDE 40 MG TABLET ONE (05:49)
[2020-12-02 05:56] LABS: MEAN CORPUSCULAR HEMOGLOBIN 22.4 pg (27.5-34.5); MEAN CORPUSCULAR HGB CONC 30.6 g/dL (33.2-36.2); MEAN PLATELET VOLUME 7.4 fL (7.4-10.4); PLATELET COUNT 478 x10^3/uL (130-400); RED BLOOD COUNT 3.61 x10^6/uL (4.38-5.82); RED CELL DISTRIBUTION WIDTH 19.4 % (9.4-14.8)
[2020-12-02] MEDS ORDERED: FUROSEMIDE 40 MG TABLET PO ONE (06:00)
[2020-12-02 06:05] LABS: ALANINE AMINOTRANSFERASE 19 U/L (12-78); ALBUMIN 2.5 g/dL (3.4-5.0); ANION GAP 8 mmol/L (5-15); CALCIUM 8.2 mg/dL (8.5-10.1); CHLORIDE 111 mmol/L (98-107)
--- NOTE | 2020-12-02 06:06 | NUR ---
Patient is resting comfortably in bed. Bed in lowest, rails engaged, call light on lap. Vital Signs within normal limits. WCTM.
[2020-12-02 06:10] LABS: ALKALINE PHOSPHATASE 105 U/L (45-117); BILIRUBIN,TOTAL 0.4 mg/dL (0.2-1.0); TOTAL PROTEIN 7.7 g/dL (6.4-8.2)
[2020-12-02 06:20] LABS: ANISOCYTOSIS 1+; BASOS#(MANUAL) 0.13 x10^3/uL (0-0.1); BASOS% (MANUAL) 1 % (0-1); EOS#(MANUAL) 0.79 x10^3/uL (0.0-0.4); EOS% (MANUAL) 6 % (1-7); HYPOCHROMIA 1+; LYMPH#(MANUAL) 2.64 x10^3/uL (1-3.4); LYMPHS% (MANUAL) 20 % (22-44); MICROCYTOSIS 1+; MONOS#(MANUAL) 1.45 x10^3/uL (0.3-2.7); MONOS% (MANUAL) 11 % (2-9); SEG#(MANUAL) 8.18 x10^3/uL (1.8-6.8); SEGS% (MANUAL) 62 % (42-75)
[2020-12-02 06:21] LABS: POLYCHROMASIA 1+
[2020-12-02 06:22] LABS: <PLATELET ESTIMATE> INCREASED; <PLT MORPHOLOGY> NORMAL PLT MORPH
--- NOTE | 2020-12-02 07:06 | NUR ---
GAVE REPORT TO ARNOLD GEE. TRANSFER OF CARE
[2020-12-02 07:32] VITALS: BP 130/86
== END 2020-12-02 07:55 | disposition home or self-care (01) ==
LOC: ED 07:35
DX: R60.0 Localized edema (principal); K74.60 Unspecified cirrhosis of liver; D53.9 Nutritional anemia, unspecified; I10 Essential (primary) hypertension
CPT/HCPCS: 36415; 71045; 80053; 83880; 85025; 99284

== ENCOUNTER 2020-12-06 05:52 | Emergency (ER) | payer MEDICAID ==
[~2020-12-06] VITALS: Ht 175.3 cm; Wt 68.0 kg
--- NOTE | 2020-12-06 06:12 | NUR ---
PT PROVIDED SNACKS PER PT REQUEST
--- NOTE | 2020-12-06 06:55 | NUR ---
REPORT TO MARLEN BRAVO
[2020-12-06 07:41] VITALS: BP 124/75
== END 2020-12-06 08:02 | disposition home or self-care (01) ==
LOC: ED 06:12
DX: S60.222A Contusion of left hand, initial encounter (principal); S00.01XA Abrasion of scalp, initial encounter; S06.9X1A Unspecified intracranial injury with loss of consciousness of 30 minutes or less, initial encounter; F17.200 Nicotine dependence, unspecified, uncomplicated; W22.8XXA Striking against or struck by other objects, initial encounter; Y93.89 Activity, other specified; Y92.89 Other specified places as the place of occurrence of the external cause; Y99.8 Other external cause status
CPT/HCPCS: 70450; 99284